=== PATIENT | male | born 1945 | race Caucasian/White ===

== ENCOUNTER 2020-02-12 14:23 | Inpatient (IN) | payer MEDICAID ==
[~2020-02-12] VITALS: Ht 182.9 cm; Wt 54.9 kg
--- NOTE | 2020-02-12 14:25 | NUR ---
AAOX3, BIBRA 889 FROM HOME C/O DIFFUSE ABDOMINAL PAIN, DIARRHEA AND VOMITING X 2 DAYS. RR IS EVEN AND UNLABORED WITH NAD NOTED. SKIN IS WARM AND DRY. AWAITING MD FOR EVAL.
--- NOTE | 2020-02-12 14:48 | NUR ---
IV INSERTED LEFT FORARM 18G
[2020-02-12 14:51] LABS: BASOPHILS % (AUTO) 0.1 % (0.0-2.0); HEMATOCRIT 52 % (39-51); LYMPHOCYTES # (AUTO) 0.9 /CMM (0.8-4.8); LYMPHOCYTES % (AUTO) 3.3 % (20.0-44.0); MEAN CORPUSCULAR HGB CONC 33 g/dl (31.0-36.0); MEAN CORPUSCULAR VOLUME 87 fL (80-96); MONOCYTES # (AUTO) 1.6 /CMM (0.1-1.30); MONOCYTES % (AUTO) 5.8 % (2.0-12.0); NEUTROPHILS # (AUTO) 25.3 /CMM (1.8-8.9); NEUTROPHILS % (AUTO) 90.8 % (43.0-81.0); PLATELET COUNT (AUTO) 245 /CMM (150-450); RED BLOOD CELL COUNT(AUTO) 5.97 MIL/uL (4.5-6.0); WHITE BLOOD COUNT (AUTO) 27.8 K/uL (4.3-11.0)
[2020-02-12] MEDS ORDERED: IV NS 0.9% 1,000 ML BAG IV ONE ×2 (15:00→17:30)
[2020-02-12 15:08] LABS: CALCIUM, SERUM 8.9 mg/dL (8.5-10.1); CARBON DIOXIDE 20 mmol/L (21-32); CHLORIDE 101 mmol/L (98-107); GLUCOSE 184 mg/dL (74-106); POTASSIUM 4.5 mmol/L (3.5-5.1); SODIUM SERUM 137 mmol/L (136-145); UREA NITROGEN, BLOOD 42 mg/dL (7-18)
[2020-02-12 15:13] LABS: ALANINE AMINOTRANSFERASE 10 U/L (12-78); ALBUMIN 3.5 g/dL (3.4-5.0); ALKALINE PHOSPHATASE 55 U/L (46-116); ASPARTATE AMINOTRANSFERASE 16 U/L (15-37); LIPASE 44 U/L (73-393); TOTAL PROTEIN, SERUM 6.9 g/dL (6.4-8.2)
[2020-02-12 15:24] LABS: BILIRUBIN,DIRECT 0.4 mg/dL (0.0-0.2)
--- NOTE | 2020-02-12 15:29 | NUR ---
patient came back from ct
[2020-02-12] MEDS ORDERED: LEVOFLOXACIN 750 MG /D5W 150ML 150 ML IV ONE ×2 (16:00→16:08)
[2020-02-12] MEDS ORDERED: METRONIDAZOLE 500MG/ NS 100ML 100 ML IV ONE ×2 (16:00→16:08)
[2020-02-12 17:01] LABS: APPEARANCE,URINE Slightly Cloudy (CLEAR); BILIRUBIN,URINE MODERATE (NEGATIVE); BLOOD, URINE Trace-lysed Ery/uL (NEGATIVE); COLOR,URINE Dark (YELLOW); KETONES,URINE 15 (NEGATIVE); LEUKOCYTE ESTERASE ,URINE Negative (NEGATIVE); NITRITE, URINE Negative (NEGATIVE); PH,URINE 5.5 (5.0-8.0); PROTEIN,URINE 30 mg/dl (NEGATIVE); UGLUCOSE Negative (NEGATIVE); UROBILINOGEN,URINE 0.2 EU/dL (0.2)
--- NOTE | 2020-02-12 17:38 | NUR ---
COVID TEST COMPLETED , SENT TO LAB
[2020-02-12 18:00] LABS: BACTERIA,URINE Few /HPF (None Seen); RBC,URINE 0-2 /HPF (0-2); SQUAMOUS EPITHELIAL CELL,UR Few /HPF (None Seen); WBC,URINE 0-2 /HPF (0-3)
[2020-02-12 18:26] LABS: MAGNESIUM 2.1 mg/dL (1.8-2.4)
[2020-02-12 18:52] LABS: C-REACTIVE PROTEIN 10.3 mg/dL (0.0-0.9)
[2020-02-12 18:53] LABS: THYROID STIMULATING HORMONE 1.763 uIU/mL (0.358-3.74)
[2020-02-12] MEDS ORDERED: HYDROCODONE/APAP 5/325MG TABLET PO PRN (19:00)
[2020-02-12] MEDS ORDERED: MAG HYDROX/AL HYDROX/SIMETH 30 ML UDC PO PRN (19:00)
[2020-02-12] MEDS ORDERED: ONDANSETRON HCL/PF 4 MG/2 ML VIAL IVP PRN (19:00)
[2020-02-12] MEDS ORDERED: MAGNESIUM HYDROXIDE 30 ML UDC PO PRN (19:00)
[2020-02-12] MEDS ORDERED: ACETAMINOPHEN 325 MG TABLET PO PRN (19:00)
[2020-02-12] MEDS ORDERED: Z GUARD REMEDY 2 OZ OINT TP PRN (19:00)
--- NOTE | 2020-02-12 19:26 | NUR ---
PT HAS NO MEDICAL COMPLAINTS AT THIS TIME. VSS. NO ACUTE DISTRESS NOTED. PT CONNECTED TO THE PITCH WORKER AND POX.
--- NOTE | 2020-02-12 19:47 | NUR ---
CALLED FOR COVID
--- NOTE | 2020-02-12 20:02 | NUR ---
(PT'S DAUGHTER) LENA
--- NOTE | 2020-02-12 20:03 | NUR ---
MOSOTHO AND GUINEAN SPEAKING
--- NOTE | 2020-02-12 20:07 | NUR ---
COVID SWAB COLLECTED AND SENT TO LAB
--- NOTE | 2020-02-12 21:56 | NUR ---
COVID NEGATIVE (-) PER LAB 323-2
--- NOTE | 2020-02-12 21:59 | NUR ---
WILL CALL BACK FOR REPORT
--- NOTE | 2020-02-12 22:10 | NUR ---
REPORT GIVEN TO KASI REYES FOR LAINA
[2020-02-12 22:40] VITALS: BP 135/86
--- NOTE | 2020-02-12 22:58 | NUR ---
MS RN ADMITTING NOTES ADMITTED PATIENT, FROM ER TRANSPORTED VIA GURNEY, NO SIGNS OF ACUTE CARDIAC OR RESPIRATORY DISTRESS NOTED. ALERT ORIENTED X4, PERUVIAN / GABONESE SPEAKING. ORIENTED TO ROOM AND THE USE OF CALL LIGHT. SAFETY MEASURES IN PLACE, ASPIRATION PRECAUTION EMPHASIZED. DENIES ANY PAIN WITH SLIGHT ABDOMINAL DISCOMFORT AT THIS TIME, REPOSITIONED FOR COMFORT. SKIN INTACT NOTED DURING ASSESSMENT.PERIPHERAL IV ACCESS ON HER LEFT AC G#18 INTACT AND PATENT. ALL NEEDS ANTICIPATED. ADMISSION PROCESS INITIATED. WILL CONTINUE TO MONITOR ACCORDINGLY.
[2020-02-12 23:15] VITALS: BP 135/86
[2020-02-12] MEDS: IV NS 0.9% 1,000 ML IV PRN (23:16)
[2020-02-13] MEDS ORDERED: METRONIDAZOLE 500MG/ NS 100ML 100 ML IV ONE ×2 (00:45→05:35)
[2020-02-13] MEDS: METRONIDAZOLE 500MG/ NS 100ML 500 MG in PREMIX 1 EA IV SCH ×5 (00:51→23:09)
--- NOTE | 2020-02-13 06:35 | NUR ---
MS RN NOTES ALL NEEDS ATTENDED AND MET, PATIENT HAD A WATERY STOOLS X3, SINCE 0030. INSTRUCTED TO COLLECT SPECIMEN, PATIENT FORGOT AND FLUSHED THE FIRST 2 BM. SAFETY MEASURES IN PLACE, ASPIRATION PRECAUTION EMPHASIZED. CALL LIGHT WITH IN EASY REACH. WILL ENDORSE TO AM NURSE FOR CONTINUITY OF CARE.
[2020-02-13 06:47] LABS: BASOPHILS % (AUTO) 0.1 % (0.0-2.0); HEMATOCRIT 48 % (39-51); HEMOGLOBIN 15.7 g/dL (13.5-17.5); LYMPHOCYTES # (AUTO) 1.1 /CMM (0.8-4.8); LYMPHOCYTES % (AUTO) 5.4 % (20.0-44.0); MEAN CORPUSCULAR HGB CONC 32 g/dl (31.0-36.0); MEAN CORPUSCULAR VOLUME 87 fL (80-96); MONOCYTES # (AUTO) 1.4 /CMM (0.1-1.30); MONOCYTES % (AUTO) 6.5 % (2.0-12.0); NEUTROPHILS # (AUTO) 18.9 /CMM (1.8-8.9); PLATELET COUNT (AUTO) 215 /CMM (150-450); RED BLOOD CELL COUNT(AUTO) 5.55 MIL/uL (4.5-6.0); WHITE BLOOD COUNT (AUTO) 21.4 K/uL (4.3-11.0)
[2020-02-13 07:05] LABS: CALCIUM, SERUM 8.4 mg/dL (8.5-10.1); CARBON DIOXIDE 25 mmol/L (21-32); CHLORIDE 103 mmol/L (98-107); CREATININE 1.4 mg/dL (0.6-1.3); GLUCOSE 136 mg/dL (74-106); MAGNESIUM 2.1 mg/dL (1.8-2.4); PHOSPHORUS 3.2 mg/dL (2.5-4.9); POTASSIUM 4.6 mmol/L (3.5-5.1); SODIUM SERUM 138 mmol/L (136-145); UREA NITROGEN, BLOOD 33 mg/dL (7-18)
[2020-02-13 07:30] LABS: CHOLESTEROL 165 mg/dL (<200); HDL CHOLESTEROL 40 mg/dL (40-60); LDL 107 mg/dL (0-99); TRIGLYCERIDES 94 mg/dL (30-150)
[2020-02-13 08:00] VITALS: BP 127/81
--- NOTE | 2020-02-13 08:00 | NUR ---
Patient in stable condition . Patient has no appetite and general weakens. denies abdominal pain
--- NOTE | 2020-02-13 10:20 | NUR ---
Patient seen by Aguilar GUT SNATCHER and plan of care discussed with the patient . Patient verbalized understanding.
[2020-02-13] MEDS: IV NS 0.9% 1,000 ML IV PRN (15:41)
[2020-02-13 16:00] VITALS: BP 113/73
[2020-02-13] MEDS: LEVOFLOXACIN 250 MG /D5W 50 ML 250 MG in PREMIX 1 EA IV SCH (16:16)
[2020-02-13] MEDS: ENSURE CLEAR 237 ML LIQUID (MIX BERRY) PO SCH (17:19)
--- NOTE | 2020-02-13 18:46 | NUR ---
Patient resting in bed comfortably . NO distress noted, no abd pain at this time. Patient continue to have diarrhea , C-Diff is pending. IV infusing Levaquin as directed. Will endorse to next shift for LAINA
--- NOTE | 2020-02-13 19:40 | NUR ---
MS RN OPENING NOTES RECEIVED PATIENT FROM MORNING SHIFT, ALERT AND ORIENTED X 3. VERBALLY RESPONSIVE CITIZEN OF [place] SPEAKING AND ABLE TO FOLLOW DIRECTIONS. BREATHING REGULAR AND UNLABORED ON ROOM AIR. LEFT AC G18 IV LINE INTACT AND PATENT, INFUSING WELL WITH NO BLEEDING OR S/S OF INFILTRATION NOTED. DENIES SUICIDAL IDEATION OR PAIN/DISCOMFORT AT THIS TIME. BED LOW AND LOCKED ON SEMI FOWLERS POSITION. CALL LIGHT IN REACH. WILL CONTINUE TO MONITOR.
[2020-02-13 20:00] VITALS: BP 127/77
[2020-02-13 20:08] VITALS: BP 127/77
[2020-02-14] MEDS: METRONIDAZOLE 500MG/ NS 100ML 500 MG in PREMIX 1 EA IV SCH ×4 (05:29→23:17)
[2020-02-14 06:18] LABS: BASOPHILS % (AUTO) 0.1 % (0.0-2.0); HEMATOCRIT 47 % (39-51); HEMOGLOBIN 15.2 g/dL (13.5-17.5); LYMPHOCYTES % (AUTO) 5.2 % (20.0-44.0); MEAN CORPUSCULAR HGB CONC 32 g/dl (31.0-36.0); MEAN CORPUSCULAR VOLUME 88 fL (80-96); MONOCYTES # (AUTO) 1.5 /CMM (0.1-1.30); MONOCYTES % (AUTO) 8.1 % (2.0-12.0); NEUTROPHILS # (AUTO) 16.1 /CMM (1.8-8.9); NEUTROPHILS % (AUTO) 86.6 % (43.0-81.0); PLATELET COUNT (AUTO) 202 /CMM (150-450); RED BLOOD CELL COUNT(AUTO) 5.36 MIL/uL (4.5-6.0); WHITE BLOOD COUNT (AUTO) 18.6 K/uL (4.3-11.0)
--- NOTE | 2020-02-14 06:25 | NUR ---
MS RN CLOSING NOTES PATIENT IN BED, ALERT AND ORIENTED X 3. AFEBRILE WITH NO S/S OF DISTRESS OBSERVED. LEFT AC G18 IV LINE PATENT AND INFUSING WELL. NO COMPLAINTS OF PAIN/DISCOMFORT REPORTED AT THIS TIME. BED LOW AND LOCKED ON SEMI FOWLERS POSITION. CALL LIGHT IN REACH. WILL ENDORSE TO MORNING SHIFT FOR LAINA.
[2020-02-14 06:46] LABS: CALCIUM, SERUM 7.8 mg/dL (8.5-10.1)
[2020-02-14] MEDS: IV NS 0.9% 1,000 ML IV PRN (07:03)
[2020-02-14 08:00] VITALS: BP 145/85
--- NOTE | 2020-02-14 08:30 | NUR ---
Patient noted with infiltrated IV line. IV removed and ice pack applied. Will insert another IV line
[2020-02-14] MEDS: ENSURE CLEAR 237 ML LIQUID (MIX BERRY) PO SCH ×3 (08:40→17:04)
--- NOTE | 2020-02-14 09:46 | NUR ---
A new IV line inserted to the right forearm g 22, flushing well . Patient continue on IV fluids as ordered
--- NOTE | 2020-02-14 12:30 | NUR ---
Patient's daughter picked up pt's wallet . Documented on valuable form.
--- NOTE | 2020-02-14 15:46 | NUR ---
Received call bernabe Brown ; patient C-diff positive. Patient was on contact isolation since sample was send. Miladys SAMUEL notified
--- NOTE | 2020-02-14 15:48 | NUR ---
A new order from Sarah Lee : Vancomycin 125 mg PO Q6 hr
[2020-02-14 16:00] VITALS: BP 132/80
[2020-02-14] MEDS: LEVOFLOXACIN 250 MG /D5W 50 ML 250 MG in PREMIX 1 EA IV SCH (16:19)
[2020-02-14] MEDS: VANCOMYCIN HCL 125 MG/2.5 ML ORAL.SUSP PO SCH ×2 (17:44→23:17)
--- NOTE | 2020-02-14 18:44 | NUR ---
Patient resting in bed . All needs attended. pt states he feel better today and have more energy. 4 episodes diarrhea today. IV line to the right forearm 22 g , IV fluid infusing as ordered. Safety precautions in place, call light within reach. Will endorse to next shift for LAINA
--- NOTE | 2020-02-14 19:35 | NUR ---
MS RN OPENING NOTES RECEIVED PATIENT FROM MORNING SHIFT, ALERT AND ORIENTED X 3. VERBALLY RESPONSIVE ZAMBIAN SPEAKING AND ABLE TO FOLLOW DIRECTIONS. BREATHING REGULAR AND UNLABORED ON ROOM AIR. LEFT AC G18 IV LINE INTACT AND PATENT, INFUSING WELL WITH NO BLEEDING OR S/S OF INFILTRATION NOTED. DENIES SUICIDAL IDEATION OR PAIN/DISCOMFORT AT THIS TIME. ON CONTACT ISOLATION FOR C.DIFFICILE. PROPER HAND WASHING AND ISOLATION PRECAUTION OBSERVED. BED LOW AND LOCKED ON SEMI FOWLERS POSITION. CALL LIGHT IN REACH. WILL CONTINUE TO MONITOR.
[2020-02-14 20:00] VITALS: BP 131/86
[2020-02-15] MEDS: VANCOMYCIN HCL 125 MG/2.5 ML ORAL.SUSP PO SCH ×3 (05:37→17:28)
[2020-02-15] MEDS: METRONIDAZOLE 500MG/ NS 100ML 500 MG in PREMIX 1 EA IV SCH (05:37)
[2020-02-15 06:29] LABS: BASOPHILS % (AUTO) 0.1 % (0.0-2.0); HEMATOCRIT 46 % (39-51); HEMOGLOBIN 15.2 g/dL (13.5-17.5); LYMPHOCYTES # (AUTO) 1.2 /CMM (0.8-4.8); MEAN CORPUSCULAR HGB CONC 33 g/dl (31.0-36.0); MEAN CORPUSCULAR VOLUME 87 fL (80-96); MONOCYTES # (AUTO) 1.3 /CMM (0.1-1.30); MONOCYTES % (AUTO) 8.2 % (2.0-12.0); NEUTROPHILS % (AUTO) 83.7 % (43.0-81.0); PLATELET COUNT (AUTO) 210 /CMM (150-450); RED BLOOD CELL COUNT(AUTO) 5.32 MIL/uL (4.5-6.0); WHITE BLOOD COUNT (AUTO) 15.5 K/uL (4.3-11.0)
--- NOTE | 2020-02-15 06:40 | NUR ---
MS RN CLOSING NOTES PATIENT IN BED, ALERT AND ORIENTED X 3. AFEBRILE WITH NO S/S OF DISTRESS OBSERVED. RIGHT FOREARM G22 IV LINE PATENT AND INFUSING WELL. NO COMPLAINTS OF PAIN/DISCOMFORT REPORTED AT THIS TIME. MAINTAINED ON CONTACT ISOLATION FOR C.DIFFICILE. BED LOW AND LOCKED ON SEMI FOWLERS POSITION. CALL LIGHT IN REACH. WILL ENDORSE TO MORNING SHIFT FOR LAINA.
[2020-02-15 06:50] LABS: CALCIUM, SERUM 7.9 mg/dL (8.5-10.1); CREATININE 1.2 mg/dL (0.6-1.3); POTASSIUM 4.1 mmol/L (3.5-5.1)
[2020-02-15 07:06] LABS: PTH, INTACT 23 pg/mL (15-65)
--- NOTE | 2020-02-15 07:39 | NUR ---
MS RN OPENING NOTES BEDSIDE ENDORSEMENT DONE. PATIENT IS IN BED, AWAKE AND VERBALLY RESPONSIVE, A/O X3. SPANISH-SPEAKING BUT ABLE TO FOLLOW SIMPLE COMMANDS. BREATHING EVEN AND UNLABORED, TOLERATING ROOM AIR. LAC G18 IV INTACT AND PATENT. ON CONTACT ISOLATION FOR C. DIFF: PROPER HAND WASHING AND PRECAUTIONS OBSERVED. CALL LIGHT W/IN REACH AND REMINDED TO ASK FOR STAFF ASSISTANCE FOR ADLS. WILL CONTINUE TO MONITOR.
[2020-02-15 08:00] VITALS: BP 131/80
[2020-02-15] MEDS: ENSURE CLEAR 237 ML LIQUID (MIX BERRY) PO SCH ×3 (09:40→17:00)
[2020-02-15 16:00] VITALS: BP 104/79
--- NOTE | 2020-02-15 18:40 | NUR ---
MS RN CLOSING NOTES PATIENT IN BED ASLEEP AT THIS TIME, EASILY AWAKENS. HOB ELEVATED. PT IS A/O X 3. TANZANIAN SPEAKING. ON ROOM AIR, TOLERATING WELL WITH NO S/S OF DISTRESS OBSERVED DURING THE DAY. IV ACCESS ON RFA G#22 INTACT AND PATENT, IVF OF NS @ 75ML/HR INFUSING WELL, NO S/S OF INFILTRATIONS AT SITE NOTED. CONTACT ISOLATION FOR C.DIFFICILE MAINTAINED. ALL NEEDS AND CARE ATTENDED WELL. SAFETY MEASURES IN PLACE: BED LOW AND LOCKED W/ SR UP X2. CALL LIGHT IN REACH. WILL ENDORSE TO NIGHT NURSE FOR LAINA.
[2020-02-15] MEDS: IV NS 0.9% 1,000 ML IV PRN (19:02)
--- NOTE | 2020-02-15 19:30 | NUR ---
MS RN OPENING NOTES PATIENT AWAKE IN BED. A/OX3; PRIMARY LANGUAGE KHMER HOWEVER IS ABLE TO UNDERSTAND A LITTLE HUNGARIAN. ON RA; NO S/S OF ACUTE RESPIRATORY DISTRESS; BREATHING IS EVEN AND UNLABORED. NO S/S OF PAIN NOTED. IV PRESENT ON RIGHT FA, SIZE 22, INTACT & PATENT WITH NS RUNNING AT 75 ML/HR. CONTACT PRECAUTIONS IN PLACE FOR C-DIFF. SAFETY MEASURES IN PLACE AND PATIENT'S NEEDS MET. BED LOCKED, HOB ELEVATED, SIDE RAILS X2, CALL LIGHT WITHIN REACH. WILL CONTINUE TO MONITOR.
[2020-02-15 19:59] VITALS: BP 136/81
[2020-02-15 20:00] VITALS: BP 136/81
[2020-02-15 20:22] VITALS: BP 136/81
[2020-02-16] MEDS: VANCOMYCIN HCL 125 MG/2.5 ML ORAL.SUSP PO SCH ×5 (00:20→23:46)
--- NOTE | 2020-02-16 06:35 | NUR ---
MS RN CLOSING NOTES PATIENT SLEEPING, EASY TO AWAKEN. A/OX3. ON RA; NO S/S OF ACUTE RESPIRATORY DISTRESS; BREATHING IS EVEN AND UNLABORED. NO S/S OF PAIN NOTED. IV PRESENT ON RIGHT FA, SIZE 22, INTACT & PATENT WITH NS RUNNING AT 75 ML/HR. CONTACT PRECAUTIONS IN PLACE FOR C-DIFF. SAFETY MEASURES IN PLACE AND PATIENT'S NEEDS MET. BED LOCKED, HOB ELEVATED, SIDE RAILS X2, CALL LIGHT WITHIN REACH. WILL ENDORSE TO DAY SHIFT RN PLAN OF CARE.
--- NOTE | 2020-02-16 07:34 | NUR ---
MS RN OPENING NOTES RECEIVED PATIENT IN BED AWAKE, A/O X 3. THAI SPEAKING, DENIES PAIN OR ANY DISCOMFORTS AT THIS TIME. ON ROOM AIR, BREATHING EVEN AND UNLABORED. CONTACT PRECAUTIONS FOR C-DIFF MAINTAINED. IV ACCESS ON LEFT WRIST 22G INTACT AND PATENT WITH IVF OF NS @ 75ML/HR INFUSING, NO S/S OF INFILTRATIONS NOTED AT SITE.S AFETY PRECAUTIONS IN PLACE: BED IN LOWEST POSITION, LOCKED WITH SR UP X2. CALL LIGHT WITHIN REACH. WILL CONTINUE TO MONITOR.
[2020-02-16 08:00] VITALS: BP 129/75
[2020-02-16] MEDS: ENSURE CLEAR 237 ML LIQUID (MIX BERRY) PO SCH ×3 (08:00→16:35)
[2020-02-16 12:21] LABS: BASOPHILS % (AUTO) 0.1 % (0.0-2.0); HEMATOCRIT 47 % (39-51); HEMOGLOBIN 15.1 g/dL (13.5-17.5); LYMPHOCYTES # (AUTO) 1.5 /CMM (0.8-4.8); LYMPHOCYTES % (AUTO) 9.6 % (20.0-44.0); MEAN CORPUSCULAR HGB CONC 32 g/dl (31.0-36.0); MEAN CORPUSCULAR VOLUME 88 fL (80-96); MONOCYTES # (AUTO) 1.1 /CMM (0.1-1.30); NEUTROPHILS # (AUTO) 13.1 /CMM (1.8-8.9); NEUTROPHILS % (AUTO) 83.3 % (43.0-81.0); PLATELET COUNT (AUTO) 239 /CMM (150-450); RED BLOOD CELL COUNT(AUTO) 5.34 MIL/uL (4.5-6.0); WHITE BLOOD COUNT (AUTO) 15.7 K/uL (4.3-11.0)
[2020-02-16 12:27] LABS: CALCIUM, SERUM 7.6 mg/dL (8.5-10.1); CREATININE 1.1 mg/dL (0.6-1.3); POTASSIUM 3.5 mmol/L (3.5-5.1)
--- NOTE | 2020-02-16 15:34 | NUR ---
RN NOTES PATIENT W/ VTE SCORE OF 3. INFORMED PERI PRETTY NP, AND SAID THAT HE WILL PUT AN ORDER FOR CHEMICAL PROPHYLAXIS.
[2020-02-16 16:00] VITALS: BP 124/76
--- NOTE | 2020-02-16 18:42 | NUR ---
MS RN CLOSING NOTES PATIENT IN AWAKE AND VERBALLY RESPONSIVE, A/O X3. BREATHING EVEN AND UNLABORED, TOLERATING ROOM AIR, WITH NO S/S OF DISTRESS OBSERVED. IV ACCESS ON LEFT WRIST G#22 INTACT AND PATENT, NO S/SX OF INFILTRATION. CONTACT ISOLATION FOR C.DIFFICILE MAINTAINED. ALL NEEDS AND CARE ATTENDED DURING THE SHIFT. SAFETY MEASURES IN PLACE: BED ON LOWEST AND LOCKED POSITION, SR UP X2, CALL LIGHT W/IN REACH. WILL ENDORSE TO MARKETING CONTENT MANAGER NURSE FOR LAINA.
--- NOTE | 2020-02-16 19:00 | NUR ---
stock turner: received report from nyla scott. pt a/o x3, croatian speaking, able to make his needs known. seen by gi today, aware pt still having loose bm 10x. order lomotil prn. iv access patent and flushing well, on hl. pt eating croatian food. on ra respirations even and unlabored. + cdiff, isolation precautions initiated, ppe utilized. safety precautions for fall initiated, call light in reach, will continue monitoring pt.
--- NOTE | 2020-02-16 19:54 | NUR ---
rn notes: lomotil medication showing on [facility]. other [facility] in [facility]il not stock. day rn nyla notified pharmacy at 1830 that medication showing in the [facility]. no available meds in pt's cassette. asked different unit however its not available in their [facility]
[2020-02-16 19:57] VITALS: BP 134/76
[2020-02-16 20:05] VITALS: BP 134/76
--- NOTE | 2020-02-16 20:30 | NUR ---
rn notes: received call from [phone] dany (chata) provided update regarding pt. stated she can be of help regarding translation.
--- NOTE | 2020-02-16 20:35 | NUR ---
rn notes: went to er to get lomotil. broadcast journalist andrew override the medication.
[2020-02-16] MEDS ORDERED: DIPHENOXYLATE HCL/ATROP SULF 1 UDTAB TABLET ONE (20:42)
[2020-02-16] MEDS: DIPHENOXYLATE HCL/ATROP SULF 1 UDTAB TABLET PO PRN (20:47)
--- NOTE | 2020-02-16 20:47 | NUR ---
prn lomotil: pt having loose bm, prn lomotil administered per md ordered.
[2020-02-16] MEDS ORDERED: METRONIDAZOLE 500MG/ NS 100ML 100 ML IV ONE (23:31)
[2020-02-16] MEDS: METRONIDAZOLE 500MG/ NS 100ML 500 MG in PREMIX 1 EA IV SCH (23:40)
--- NOTE | 2020-02-17 | NUR ---
rn notes: ID/EQUIPMENT CLEANER AND TESTER Nissa increase dose of vancomycin to 5ml for treatment of cdiff. med room's fridge only has 3 syringes filled with 2.5ml of vancomycin po grape flavor for pt. since 5ml are administered, there is only one 2.5 ml filled vanco po syringe left in the fridge, not enough for 0600am dose vanco. internal security manager aware. will wait for pharmacy to open in am in order to administer complete dose of vanco for 0600am.
--- NOTE | 2020-02-17 00:05 | NUR ---
transfer of care notes: pt assisted to the bathroom. had 2 loose bm from 7pm till now. pt restarted on iv metronidazole per id dr vann. vanco po increase to 5ml q6hrs for cdiff. safety precautions for fall remains engaged, call light in reach. endorse to sonia hassan for continuity of care.
--- NOTE | 2020-02-17 00:10 | NUR ---
MS/RN NOTES: REPORT GIVEN BY RN DONN FOR CONTINUITY OF CARE. PT. BACK IN BED, AFTER USING THE RESTROOM. IV CONNECTED TO IV ANTIBIOTIC. NO S/S OF DISTRESS. NO SOB NOTED. NO C/O PAIN AT THIS TIMRE/ SAFETY MEASURES IN PLACE. BED IN LOW, LOCKED POSITION WITH SR UP X2. CALL LIGHT WITHIN REACH. WILL CONTINUE TO MONITOR ACCORDINGLY.
--- NOTE | 2020-02-17 05:33 | NUR ---
MS/RN NOTES: UNABLE TO GIVE VANCOCIN HCL 250MG 5ML SCHEDULED AT 0600. UNIT'S STOCK IS 2.5ML 125MG. WILL F/U WITH PHARMACY AND ENDORSE TO DAY SHIFT RN TO BRING IN THE CORRECT DOSE IN THE MORNING. CHARGE NURSE AWARE.
--- NOTE | 2020-02-17 06:41 | NUR ---
MS/RN CLOSING NOTES: PT REMAINS COMFORTABLE IN BED, NO S/S OF DISTRESS. ON ROOM AIR. NO SOB NOTED. NO C/O PAIN AT THIS TIME. SAFETY MEASURES IN PLACE. IV ON THE LEFT WRIST #22G INFUSING NS AT 75MLS/HR. ALL NURSING NEEDS MET AND RENDERED. VANCOCIN 250MG DUE AT 0600, WILL ENDORSED TO DAY SHIFT. PHARMACY INFORMED TO BRING IN THE CORRECT DOSE. SAFETY MEASURES KEPT IN PLACE. BED IN LOW, LOCKED POSITION WITH SR UP X2. CALL LIGHT WITHIN REACH. WILL ENDORSE TO DAY SHIFT FOR LAINA.
[2020-02-17 06:42] LABS: BASOPHILS % (AUTO) 0.2 % (0.0-2.0); EOSINOPHILS % (AUTO) 0.2 % (0.0-6.0); HEMATOCRIT 44 % (39-51); HEMOGLOBIN 14.4 g/dL (13.5-17.5); LYMPHOCYTES # (AUTO) 2.3 /CMM (0.8-4.8); LYMPHOCYTES % (AUTO) 13.6 % (20.0-44.0); MEAN CORPUSCULAR HGB CONC 33 g/dl (31.0-36.0); MEAN CORPUSCULAR VOLUME 87 fL (80-96); MONOCYTES # (AUTO) 1.3 /CMM (0.1-1.30); MONOCYTES % (AUTO) 7.6 % (2.0-12.0); NEUTROPHILS # (AUTO) 13.2 /CMM (1.8-8.9); NEUTROPHILS % (AUTO) 78.4 % (43.0-81.0); PLATELET COUNT (AUTO) 211 /CMM (150-450); RED BLOOD CELL COUNT(AUTO) 5.02 MIL/uL (4.5-6.0); WHITE BLOOD COUNT (AUTO) 16.8 K/uL (4.3-11.0)
[2020-02-17 07:08] LABS: CALCIUM, SERUM 7.7 mg/dL (8.5-10.1); CREATININE 0.9 mg/dL (0.6-1.3); POTASSIUM 3.4 mmol/L (3.5-5.1)
[2020-02-17] MEDS: METRONIDAZOLE 500MG/ NS 100ML 500 MG in PREMIX 1 EA IV SCH ×3 (07:45→22:18)
[2020-02-17] MEDS: ENSURE CLEAR 237 ML LIQUID (MIX BERRY) PO SCH ×3 (07:45→17:00)
[2020-02-17] MEDS: VANCOMYCIN HCL 125 MG/2.5 ML ORAL.SUSP PO SCH ×4 (07:45→23:40)
[2020-02-17 08:00] VITALS: BP 130/69
[2020-02-17] MEDS ORDERED: POTASSIUM CHLORIDE 20 MEQ POWDER PACKET PO SCH (10:30)
[2020-02-17 16:00] VITALS: BP 124/72
--- NOTE | 2020-02-17 17:39 | NUR ---
rn notes patient remains on room air, no sob noted, a/o x3 with an azerbaijani speaking nurse by side. BRP with good balance. 1 BM in the am and nothing else after that. L wrist NS @ 75 ml per hour present. plan is to continue tjo and aletha, pt eval in the AM. Bed at the lowest setting, call light within reach, side rails up x2.
--- NOTE | 2020-02-17 19:35 | NUR ---
RN OPENING NOTE S PATIENT RECEIVED RESTING IN BED A/O X 3. STABLE ON RA WITH BREATHING EVEN AND UNLABORED, NO SOB NOTED. NO SIGNS OF ACUTE DISTRESS. NO COMPLAINTS OF PAIN OR DISCOMFORT. IV LOCATED ON L WRIST #22 RUNNING NS @ 75ML/HR. SAFETY PRECAUTIONS IN PLACE WITH BED IN LOWEST POSITION, CALL LIGHT WITHIN REACH, BREAKS ON, SIDE RAILS UP. WILL CONTINUE TO MONITOR THROUGHOUT THE NIGHT.
[2020-02-17 20:00] VITALS: BP 133/70
[2020-02-17] MEDS ORDERED: DIPHENOXYLATE HCL/ATROP SULF 1 UDTAB TABLET ONE (22:16)
[2020-02-17] MEDS: DIPHENOXYLATE HCL/ATROP SULF 1 UDTAB TABLET PO PRN (22:18)
--- NOTE | 2020-02-17 22:30 | NUR ---
RN NOTES LOMOTIL PRN ADMINISTERED. PATIENT COMPLAINING OF LOSE STOOL. WILL CONTINUE TO MONITOR.
--- NOTE | 2020-02-17 22:40 | NUR ---
RN NOTES LOMITIL MEDICATION IN [facility], OTHER [facility]MN[facility] IS OUT OF STOCK. RECEIVED MEDICATION FROM ER.
[2020-02-18] MEDS: VANCOMYCIN HCL 125 MG/2.5 ML ORAL.SUSP PO SCH ×3 (05:09→17:06)
[2020-02-18] MEDS: METRONIDAZOLE 500MG/ NS 100ML 500 MG in PREMIX 1 EA IV SCH ×3 (06:39→23:15)
--- NOTE | 2020-02-18 06:53 | NUR ---
RN CLOSING NOTES PATIENT RESTING IN BED A/O X 3. STABLE ON RA WITH BREATHING EVEN AND UNLABORED, NO SOB NOTED. NO SIGNS OF ACUTE DISTRESS. NO COMPLAINTS OF PAIN OR DISCOMFORT. IV LOCATED ON L WRIST #22. PATIENT HAD 1 BM THROUGHOUT THE NIGHT, LOOSE AND LIQUID. SAFETY PRECAUTIONS IN PLACE WITH BED IN LOWEST POSITION, CALL LIGHT WITHIN REACH, BREAKS ON, SIDE RAILS UP. ALL NEEDS ATTENDED TO. WILL ENDORSE TO ONCOMING SHIFT ABOUT LAINA.
[2020-02-18 07:10] LABS: *SPE A/G RATIO 1.2 (0.7-1.7); *SPE ALBUMIN 2.6 g/dL (2.9-4.4); *SPE ALPHA-1-GLOBULIN 0.2 g/dL (0.0-0.4); *SPE ALPHA-2-GLOBULIN 0.8 g/dL (0.4-1.0); *SPE BETA GLOBULIN 0.5 g/dL (0.7-1.3); *SPE GLOBULIN, TOTAL 2.2 g/dL (2.2-3.9); *SPE M-SPIKE Not Observed g/dL (Not Observed); *SPEGAMMA GLOBULIN 0.6 g/dL (0.4-1.8)
[2020-02-18 07:12] LABS: BASOPHILS # (AUTO) 0.1 /CMM (0.0-0.2); BASOPHILS % (AUTO) 0.4 % (0.0-2.0); EOSINOPHILS % (AUTO) 0.1 % (0.0-6.0); HEMATOCRIT 42 % (39-51); HEMOGLOBIN 13.7 g/dL (13.5-17.5); LYMPHOCYTES # (AUTO) 1.8 /CMM (0.8-4.8); LYMPHOCYTES % (AUTO) 11.7 % (20.0-44.0); MEAN CORPUSCULAR HGB CONC 33 g/dl (31.0-36.0); MEAN CORPUSCULAR VOLUME 87 fL (80-96); MONOCYTES # (AUTO) 1.2 /CMM (0.1-1.30); MONOCYTES % (AUTO) 7.7 % (2.0-12.0); NEUTROPHILS # (AUTO) 12.2 /CMM (1.8-8.9); NEUTROPHILS % (AUTO) 80.1 % (43.0-81.0); PLATELET COUNT (AUTO) 227 /CMM (150-450); RED BLOOD CELL COUNT(AUTO) 4.79 MIL/uL (4.5-6.0); WHITE BLOOD COUNT (AUTO) 15.2 K/uL (4.3-11.0)
[2020-02-18 08:00] VITALS: BP 119/70
[2020-02-18] MEDS: ENSURE CLEAR 237 ML LIQUID (MIX BERRY) PO SCH ×3 (08:00→16:03)
--- NOTE | 2020-02-18 08:23 | NUR ---
rn notes patient only wants food from her family.
[2020-02-18 08:30] LABS: CALCIUM, SERUM 7.3 mg/dL (8.5-10.1); POTASSIUM 3.3 mmol/L (3.5-5.1)
[2020-02-18] MEDS ORDERED: POTASSIUM CHLORIDE 20 MEQ TAB.PRT.SR PO SCH (12:00)
[2020-02-18 16:00] VITALS: BP 152/78
--- NOTE | 2020-02-18 17:30 | NUR ---
rn notes patient remains on room air, no sob noted, a/o x3 at this time and shows no s/s of pain. Soft diet, L wrist 22 with 5ml TKO. Plan is to DC patient with antibiotics. Bed at the lowest setting, call light within reach, side rails up x2.
--- NOTE | 2020-02-18 19:36 | NUR ---
RN OPENING NOTES PATIENT RECEIVED RESTING IN BED A/O X 3. STABLE ON RA WITH BREATHING EVEN AND UNLABORED, NO SOB NOTED. NO SIGNS OF ACUTE DISTRESS. NO COMPLAINTS OF PAIN OR DISCOMFORT. IV LOCATED ON L WRIST #22 SL. SAFETY PRECAUTIONS IN PLACE WITH BED IN LOWEST POSITION, CALL LIGHT WITHIN REACH, BREAKS ON, SIDE RAILS UP. WILL CONTINUE TO MONITOR THROUGHOUT THE NIGHT.
[2020-02-18 20:00] VITALS: BP 124/72
[2020-02-18 23:51] VITALS: BP 124/72
[2020-02-19] MEDS: VANCOMYCIN HCL 125 MG/2.5 ML ORAL.SUSP PO SCH ×3 (00:23→12:20)
[2020-02-19] MEDS: METRONIDAZOLE 500MG/ NS 100ML 500 MG in PREMIX 1 EA IV SCH (06:23)
--- NOTE | 2020-02-19 06:44 | NUR ---
RN CLOSING NOTES PATIENT RESTING IN BED A/O X 3. STABLE ON RA WITH BREATHING EVEN AND UNLABORED, NO SOB NOTED. NO SIGNS OF ACUTE DISTRESS. NO COMPLAINTS OF PAIN OR DISCOMFORT. IV LOCATED ON L WRIST #22 SL. SAFETY PRECAUTIONS IN PLACE WITH BED IN LOWEST POSITION, CALL LIGHT WITHIN REACH, BREAKS ON, SIDE RAILS UP. ALL NEEDS ATTENDED TO. WILL ENDORSE TO ONCOMING SHIFT.
--- NOTE | 2020-02-19 07:30 | NUR ---
m/s speech pathology assistant: initial assessment received pt in bed awake, a/ox3. no c/o pain or any discomfort. pt reported had 2 loose bowel movement last night, but none since then. instructed to call for assistance. will continue to monitor.
[2020-02-19 07:50] LABS: BASOPHILS % (AUTO) 0.1 % (0.0-2.0); EOSINOPHILS % (AUTO) 0.3 % (0.0-6.0); HEMATOCRIT 41 % (39-51); HEMOGLOBIN 13.4 g/dL (13.5-17.5); LYMPHOCYTES # (AUTO) 1.5 /CMM (0.8-4.8); LYMPHOCYTES % (AUTO) 10.8 % (20.0-44.0); MEAN CORPUSCULAR HGB CONC 33 g/dl (31.0-36.0); MEAN CORPUSCULAR VOLUME 88 fL (80-96); MONOCYTES # (AUTO) 1.2 /CMM (0.1-1.30); MONOCYTES % (AUTO) 8.8 % (2.0-12.0); PLATELET COUNT (AUTO) 219 /CMM (150-450); RED BLOOD CELL COUNT(AUTO) 4.69 MIL/uL (4.5-6.0); WHITE BLOOD COUNT (AUTO) 13.8 K/uL (4.3-11.0)
[2020-02-19] MEDS: ENSURE CLEAR 237 ML LIQUID (MIX BERRY) PO SCH ×2 (07:54→11:46)
[2020-02-19 08:00] VITALS: BP 112/66
[2020-02-19 08:44] LABS: CALCIUM, SERUM 7.6 mg/dL (8.5-10.1); CREATININE 1.1 mg/dL (0.6-1.3); POTASSIUM 3.5 mmol/L (3.5-5.1)
--- NOTE | 2020-02-19 09:30 | NUR ---
m/s pillow agent: notes pt refused hospital food, pt prefers home food. no distress noted. will continue to monitor.
--- NOTE | 2020-02-19 11:00 | NUR ---
m/s xerox machine mechanic: md visit dr. wall at bedside with namibian staff translating, pt wants to go home today, doesn't want to stay one more day. pt for dietary consult and for d'c home today as requested. pt very pleased and happy. will continue to monitor. instructed to call for assistance. will continue to monitor.
--- NOTE | 2020-02-19 11:20 | NUR ---
m/s steam box tender: notes order received to [facility] pt home this afternoon. order acknowledged. daughter aware per pt. niece called and wants prescription fax to her. prescription faxed per family's request. pt still wants to eat his home food, still refusing hospital food including ensure.
--- NOTE | 2020-02-19 11:48 | NUR ---
m/s horologist: notes f/u made to mireille (dietary) and informed me that it has been address and been documented in her notes. dr. wall made aware.
--- NOTE | 2020-02-19 12:15 | NUR ---
m/s soft iron inspector: notes cn at bedside for turkish translation. discharge instructions given to pt with prescription and verbalized understanding. pt called daughter to pick him up with clothes as stated. h/l removed with tip intact.
--- NOTE | 2020-02-19 13:30 | NUR ---
m/s computer systems administrator: notes still awaiting for daughter to shredder picker pt. no distress noted. instructed to call for assistance.
--- NOTE | 2020-02-19 13:55 | NUR ---
m/s inside b2b sales: notes daughter arrived in main lobby and brought change of clothes.
--- NOTE | 2020-02-19 14:00 | NUR ---
m/s retail business manager: discharge discharge home in stable condition with all d'c papers and belongings via private car accompanied by daughter.
== END 2020-02-19 14:00 | disposition home or self-care (01) | DRG 720 ==
LOC: ER 14:30 → MED 22:03
PROVIDERS: ADMIT Nurse Practitioner Acute Care; ATTEND Nurse Practitioner Acute Care
DX: A41.9 Sepsis, unspecified organism (principal); N17.0 Acute kidney failure with tubular necrosis; E87.2 Acidosis; R65.20 Severe sepsis without septic shock; J18.9 Pneumonia, unspecified organism; A04.72 Enterocolitis due to Clostridium difficile, not specified as recurrent; N40.0 Benign prostatic hyperplasia without lower urinary tract symptoms; R73.9 Hyperglycemia, unspecified; Z98.890 Other specified postprocedural states; Z85.46 Personal history of malignant neoplasm of prostate; Z90.79 Acquired absence of other genital organ(s); I70.0 Atherosclerosis of aorta; E86.0 Dehydration; K51.318 Ulcerative (chronic) rectosigmoiditis with other complication; J44.0 Chronic obstructive pulmonary disease with (acute) lower respiratory infection; Z68.1 Body mass index [BMI] 19.9 or less, adult; R64 Cachexia; E43 Unspecified severe protein-calorie malnutrition
CPT/HCPCS: 36415; 71045-TC; 80048-TC; 80061-TC; 80076-TC; 81000-TC; 82378; 82550-TC; 83540-TC; 83605-TC; 83690-TC; 83735-TC; 83970; 84100-TC; 84155; 84165; 84443-TC; 85025-TC; 86140-TC; 87040-TC; 87081-TC; 97116-TC; 97530-TC; A4216; C9803-CS; G0378; J1956; J7030; J7050; U0003-CS

== ENCOUNTER 2020-03-15 16:16 | Inpatient (IN) | payer MEDICAID ==
[~2020-03-15] VITALS: Ht 175.3 cm; Wt 54.4 kg
[2020-03-15] MEDS ORDERED: IV NS 0.9% 1,000 ML BAG IV ONE (17:30)
[2020-03-15 17:40] LABS: BASOPHILS % (AUTO) 0.2 % (0.0-2.0); EOSINOPHILS % (AUTO) 0.4 % (0.0-6.0); HEMATOCRIT 42 % (39-51); HEMOGLOBIN 13.9 g/dL (13.5-17.5); LYMPHOCYTES # (AUTO) 1.6 /CMM (0.8-4.8); LYMPHOCYTES % (AUTO) 20.9 % (20.0-44.0); MEAN CORPUSCULAR HGB CONC 33 g/dl (31.0-36.0); MEAN CORPUSCULAR VOLUME 88 fL (80-96); MONOCYTES # (AUTO) 0.7 /CMM (0.1-1.30); MONOCYTES % (AUTO) 8.4 % (2.0-12.0); NEUTROPHILS # (AUTO) 5.5 /CMM (1.8-8.9); NEUTROPHILS % (AUTO) 70.1 % (43.0-81.0); PLATELET COUNT (AUTO) 230 /CMM (150-450); WHITE BLOOD COUNT (AUTO) 7.8 K/uL (4.3-11.0)
[2020-03-15 17:55] LABS: CARBON DIOXIDE 29 mmol/L (21-32); CHLORIDE 103 mmol/L (98-107); CREATININE 1.4 mg/dL (0.6-1.3); GLUCOSE 93 mg/dL (74-106); POTASSIUM 4.5 mmol/L (3.5-5.1); SODIUM SERUM 138 mmol/L (136-145); UREA NITROGEN, BLOOD 19 mg/dL (7-18)
--- NOTE | 2020-03-15 17:56 | NUR ---
nando daughter c/o generalized weakness, diarrhea since yesterday. family concern about c. diff. PT AAOX4, VSS. RR EVEN & UNLABORED. DENIES CP, SOB, DIZZINESS, N/V AT THIS TIME. PT SEEN & EVAL'D BY DR. DEAL. DAUGHTER @ BS TO HELP WITH TRANSLATION. WILL CONT TO MONITOR.
[2020-03-15 18:02] LABS: ALANINE AMINOTRANSFERASE 12 U/L (12-78); ALBUMIN 3.3 g/dL (3.4-5.0); ALKALINE PHOSPHATASE 51 U/L (46-116); ASPARTATE AMINOTRANSFERASE 14 U/L (15-37); BILIRUBIN,DIRECT 0.1 mg/dL (0.0-0.2); BILIRUBIN,TOTAL 0.4 mg/dL (0.2-1.0); LIPASE 341 U/L (73-393); TOTAL PROTEIN, SERUM 6.9 g/dL (6.4-8.2)
[2020-03-15] MEDS ORDERED: ACETAMINOPHEN 325 MG TABLET PO PRN (18:30)
[2020-03-15] MEDS ORDERED: ZOLPIDEM TARTRATE 5 MG TABLET PO PRN (18:30)
[2020-03-15] MEDS ORDERED: MAGNESIUM HYDROXIDE 30 ML UDC PO PRN (18:30)
[2020-03-15] MEDS ORDERED: ONDANSETRON HCL/PF 4 MG/2 ML VIAL IVP PRN (18:30)
[2020-03-15] MEDS ORDERED: Z GUARD REMEDY 2 OZ OINT TP PRN (18:30)
[2020-03-15] MEDS ORDERED: HYDROCODONE/APAP 5/325MG TABLET PO PRN (18:30)
[2020-03-15] MEDS ORDERED: MAG HYDROX/AL HYDROX/SIMETH 30 ML UDC PO PRN (18:30)
--- NOTE | 2020-03-15 20:16 | NUR ---
LAB CALLED REGARDING NEGATIVE COVID RESULT.
--- NOTE | 2020-03-15 21:13 | NUR ---
REPORT GIVEN TO KASI RODRIGUEZ FOR LAINA.
[2020-03-15 21:25] VITALS: BP 129/72
--- NOTE | 2020-03-15 21:30 | NUR ---
RN ADMITTING NOTES PATIENT RECEIVED FROM ER VIA GURNEY ACCOMPANIED BY ER STAFF. PATIENT A/O X 4, CITIZEN OF [place] SPEAKING. STABLE ON RA WITH BREATHING EVEN AND UNLABORED, NO SOB NOTED. NO SIGNS OF ACUTE DISTRESS. PATIENT ABLE TO AMBULATE STABLE. IV LOCATED ON LFA #18. SKIN ASSESSMENT DONE. VITALS TAKEN. BELONGINGS ACCOUNTED FOR. PATIENT ORIENTED TO ROOM AND STAFF. SAFETY PRECAUTIONS IN PLACE WITH BE IN LOWEST POSITION, CALL LIGHT WITHIN REACH, BREAKS ON, SIDE RAILS UP. WILL CONTINUE TO MONITOR THROUGHOUT THE NIGHT.
[2020-03-15] MEDS ORDERED: METRONIDAZOLE 500MG/ NS 100ML 100 ML IV ONE (21:35)
[2020-03-15] MEDS: METRONIDAZOLE 500MG/ NS 100ML 500 MG in PREMIX 1 EA IV SCH (21:50)
[2020-03-15] MEDS: IV D5/0.45 NACL 1,000 ML IV PRN (21:50)
--- NOTE | 2020-03-15 22:26 | NUR ---
DAUGHTER (LUCEROI) CONTACT [phone]
[2020-03-15 22:30] VITALS: BP 129/72
--- NOTE | 2020-03-16 00:41 | NUR ---
RN NOTES SCHEDULED ORAL GRAPE SOLUTION 250 MG VANCOMYCIN NOT AVAILABLE. FAXED AND REQUESTED TO [facility], BUT NOT AVAILABLE. WILL FOLLOW UP WITH PHARMACY IN THE MORNING AND TO ONCOMING NURSE.
[2020-03-16] MEDS ORDERED: METRONIDAZOLE 500MG/ NS 100ML 100 ML IV ONE (05:01)
[2020-03-16] MEDS: METRONIDAZOLE 500MG/ NS 100ML 500 MG in PREMIX 1 EA IV SCH ×3 (05:13→20:44)
[2020-03-16] MEDS: VANCOMYCIN HCL 125 MG/2.5 ML ORAL.SUSP PO SCH ×5 (06:00→18:14)
--- NOTE | 2020-03-16 06:11 | NUR ---
RN NOTES PO MIKE NOT AVAILABLE ON FLOOR OR WITH BANK SECRECY ACT OFFICER. WILL FOLLOW UP WITH PHARMACY AND ON COMING NURSE.
--- NOTE | 2020-03-16 06:41 | NUR ---
RN NOTES PHARMACY CALLED AND ADJUSTED DOSE OF VANCOMYCIN.
--- NOTE | 2020-03-16 06:52 | NUR ---
RN CLOSING NOTES PATIENT IN BED RESTING AO X 4. STABLE ON RA ITH BREATHING EVEN AND UNLABORED, NO SOB NOTED. NO SIGNS OF ACUTE DISTRESS. NO COMPLAINTS OF PAIN OR DISCOMFORT AT THE MOMENT. IV LOCATED ON LFA #18 RUNNING D51/2 NS @ 75ML/HR. SAFETY PRECAUTIONS IN PLACE WITH BED IN LOWEST POSITION, CALL LIGHT WITHIN REACH, BREAKS ON, SIDE RAILS UP. ALL NEEDS ATTENDED TO THROUGHOUT THEN NIGHT. WILL ENDORSE TO ONCOMING SHIFT ABOUT LAINA.
--- NOTE | 2020-03-16 07:30 | NUR ---
MS RN NOTES PATIENT RECEIVED IN BED RESTING COMFORTABLY, AWAKE, ALERT AND ORIENTED X 4, [place]CI[place] SPEAKING. ON ROOM AIR WITH NO SIGNS OF RESPIRATORY DISTRESS, WITH EVEN NON-LABORED BREATHING, AND NO SOB NOTED AT THIS TIME. PATIENT IV ACCESS INTACT AND PATIENT INFUSING D5 1/2 NS AT 75ml/hr. PATIENT PRESENTS WITH NO SIGNS OF PAIN OR DISCOMFORT AT THIS TIME. SAFETY PRECAUTIONS IN PLACE WITH BED LOCKED, BED IN THE LOWEST POSITION, BILATERAL SIDE RAILS UP, BED ALARM ON, AND CALL LIGHT WITHIN EASY REACH. WILL CONTINUE TO MONITOR PATIENT.
[2020-03-16 07:52] LABS: BASOPHILS % (AUTO) 0.2 % (0.0-2.0); EOSINOPHILS % (AUTO) 0.6 % (0.0-6.0); HEMATOCRIT 44 % (39-51); HEMOGLOBIN 14.6 g/dL (13.5-17.5); LYMPHOCYTES # (AUTO) 2.1 /CMM (0.8-4.8); LYMPHOCYTES % (AUTO) 20.2 % (20.0-44.0); MEAN CORPUSCULAR HGB CONC 33 g/dl (31.0-36.0); MEAN CORPUSCULAR VOLUME 87 fL (80-96); MONOCYTES # (AUTO) 0.7 /CMM (0.1-1.30); MONOCYTES % (AUTO) 6.6 % (2.0-12.0); NEUTROPHILS # (AUTO) 7.6 /CMM (1.8-8.9); NEUTROPHILS % (AUTO) 72.4 % (43.0-81.0); PLATELET COUNT (AUTO) 230 /CMM (150-450); RED BLOOD CELL COUNT(AUTO) 5.04 MIL/uL (4.5-6.0); WHITE BLOOD COUNT (AUTO) 10.6 K/uL (4.3-11.0)
[2020-03-16 08:00] VITALS: BP 106/68
[2020-03-16 08:05] LABS: CALCIUM, SERUM 8.7 mg/dL (8.5-10.1); CREATININE 1.1 mg/dL (0.6-1.3); MAGNESIUM 2.1 mg/dL (1.8-2.4); PHOSPHORUS 3.6 mg/dL (2.5-4.9)
[2020-03-16 08:14] LABS: THYROID STIMULATING HORMONE 3.782 uIU/mL (0.358-3.74)
[2020-03-16 08:28] VITALS: BP 106/68
[2020-03-16 10:38] LABS: APPEARANCE,URINE CLEAR (CLEAR); BILIRUBIN,URINE NEGATIVE (NEGATIVE); BLOOD, URINE NEGATIVE Ery/uL (NEGATIVE); COLOR,URINE YELLOW (YELLOW); KETONES,URINE NEGATIVE (NEGATIVE); LEUKOCYTE ESTERASE ,URINE NEGATIVE (NEGATIVE); NITRITE, URINE NEGATIVE (NEGATIVE); PH,URINE 5.5 (5.0-8.0); PROTEIN,URINE NEGATIVE (NEGATIVE); UGLUCOSE NEGATIVE (NEGATIVE); UROBILINOGEN,URINE 0.2 EU/dL (0.2)
[2020-03-16 10:51] LABS: CREATININE, URINE 96.2 MG/DL (30.0-125.0); URINE TOTAL PROTEIN 12.9 mg/dL (0-11.9)
[2020-03-16 11:09] LABS: EOSINOPHIL,URINE None Seen
--- NOTE | 2020-03-16 12:30 | NUR ---
MS RN NOTES INFORMED DR. OLIVEROS PATIENT'S VTE SCORE OF 3, OBTAINED ORDER OF LOVENOX 40 mg SQ DAILY, WILL CARRY OUT ORDERS AND CONTINUE TO MONITOR PATIENT.
[2020-03-16] MEDS: ENOXAPARIN SODIUM 40 MG/0.4 ML DISP.SYRIN SQ SCH (12:40)
[2020-03-16 16:53] VITALS: BP 112/70
--- NOTE | 2020-03-16 18:40 | NUR ---
MS RN NOTES PATIENT IN BED AWAKE, ALERT AND ORIENTED X 4. ON ROOM AIR WITH NO SIGNS OF RESPIRATORY DISTRESS PRESENT, WITH EVEN NON-LABORED BREATHING AND NO SOB NOTED. SKIN KEPT CLEAN AND DRY, IV ACCESS INTACT AND PATENT, INFUSING IV FLUIDS D5 1/2 NS AT 75ml/hr. PATIENT PRESENTS WITH NO SIGNS OF PAIN OR DISCOMFORT AT THIS TIME. MET ALL OF PATIENT'S NEEDS. SAFETY PRECAUTIONS IN PLACE WITH BED LOCKED, BED IN THE LOWEST POSITION, BILATERAL SIDE RAILS UP, BED ALARM ON, AND CALL LIGHT WITHIN EASY REACH. WILL ENDORSE PLAN OF CARE TO UPCOMING NURSE.
--- NOTE | 2020-03-16 19:57 | NUR ---
RN OPENING NOTES PATIENT RECEIVED RESTING IN BED A/O X 4. STABLE ON RA WITH BREATHING EVEN AND UNLABORED, NO SOB NOTED. NO SIGNS OF ACUTE DISTRESS. NO COMPLAINTS OF PAIN OR DISCOMFORT AT THE MOMENT. IV LOCATED ON L FA # 18 RUNNING D5 1/2 NS @ 75 ML/HR. SAFETY PRECAUTIONS IN PLACE WITH BED IN LOWEST POSITION, CALL LIGHT WITHIN REACH, BREAKS ON, SIDE RAILS UP. WILL CONTINUE TO MONITOR THROUGHOUT THE NIGHT.
[2020-03-16 20:00] VITALS: BP 113/72
[2020-03-17] MEDS: VANCOMYCIN HCL 125 MG/2.5 ML ORAL.SUSP PO SCH ×5 (00:25→23:50)
[2020-03-17] MEDS: IV D5/0.45 NACL 1,000 ML IV PRN (00:29)
[2020-03-17] MEDS: METRONIDAZOLE 500MG/ NS 100ML 500 MG in PREMIX 1 EA IV SCH ×2 (04:26→12:35)
--- NOTE | 2020-03-17 06:41 | NUR ---
RN CLOSING NOTES PATIENT RESTING IN BED A/O X 4. STABLE ON RA WITH BREATHING EVEN AND UNLABORED, NO SOB NOTED. NO SIGNS OF ACUTE DISTRESS. NO COMPLAINTS OF PAIN OR DISCOMFORT AT THE MOMENT. IV LOCATED ON L FA # 18 RUNNING D5 1/2 NS @ 75 ML/HR. SAFETY PRECAUTIONS IN PLACE WITH BED IN LOWEST POSITION, CALL LIGHT WITHIN REACH, BREAKS ON, SIDE RAILS UP. ALL NEEDS ATTENDED TO. WILL ENDORSE TO ONCOMING SHIFT ABOUT LAINA.
[2020-03-17 06:58] LABS: BASOPHILS % (AUTO) 0.2 % (0.0-2.0); EOSINOPHILS % (AUTO) 0.5 % (0.0-6.0); HEMATOCRIT 43 % (39-51); HEMOGLOBIN 14.2 g/dL (13.5-17.5); LYMPHOCYTES # (AUTO) 1.6 /CMM (0.8-4.8); LYMPHOCYTES % (AUTO) 15.2 % (20.0-44.0); MEAN CORPUSCULAR HGB CONC 33 g/dl (31.0-36.0); MEAN CORPUSCULAR VOLUME 87 fL (80-96); MONOCYTES # (AUTO) 0.9 /CMM (0.1-1.30); MONOCYTES % (AUTO) 8.2 % (2.0-12.0); NEUTROPHILS # (AUTO) 7.9 /CMM (1.8-8.9); NEUTROPHILS % (AUTO) 75.9 % (43.0-81.0); PLATELET COUNT (AUTO) 210 /CMM (150-450); RED BLOOD CELL COUNT(AUTO) 4.92 MIL/uL (4.5-6.0); WHITE BLOOD COUNT (AUTO) 10.4 K/uL (4.3-11.0)
--- NOTE | 2020-03-17 07:56 | NUR ---
RN Opening note Received patient in bed AO x 4, able to responds all stimuli. Skin is warm to touch, keep clean/dry, intact IV site on left forearm 18G, running D5 1/2 NS at 75 ML. Respiratory even and unlabored on room air, no sob or distress observed. Keep bed locked with lowest position and elevated HOB for ensure airway. Call light within reach, will continue to monitor.
--- NOTE | 2020-03-17 07:58 | NUR ---
RN Opening note Received patient in bed AO x 2-3 forgetful, able to responds all stimuli. Skin is warm to touch, keep clean/dry, intact midline site on left upper arm, pt has wound vac for left LE. Respiratory even and unlabored on room air, no sob or distress observed. Keep bed locked with lowest position and elevated HOB for ensure airway. Call light within reach, will continue to monitor.
[2020-03-17 08:29] VITALS: BP 118/79
[2020-03-17 08:53] LABS: CALCIUM, SERUM 8.4 mg/dL (8.5-10.1); CREATININE 1.2 mg/dL (0.6-1.3); MAGNESIUM 1.9 mg/dL (1.8-2.4); POTASSIUM 3.9 mmol/L (3.5-5.1)
[2020-03-17] MEDS: ENOXAPARIN SODIUM 40 MG/0.4 ML DISP.SYRIN SQ SCH (08:55)
[2020-03-17 16:00] VITALS: BP 109/58
--- NOTE | 2020-03-17 18:35 | NUR ---
RN Closing note Patient in bed resting comfortably, remains AO x 4, skin is warm ot touch, keep clean/dry, intact IV site running D5NS at 75 ml/hr. Respiratory even and unlabored on room air, no sob or distress observed. Kept locked bed with lowest position for safety and elevated HOB for ensure airway. Call light within reach, will continue to monitor.
--- NOTE | 2020-03-17 19:15 | NUR ---
RN MS opening notes Received Pt from morning nurse. Pt is sitting in bed comfortably. Pt is alert and orientedX4. Pt speaks Tunisian/East Timorese and able to make needs known. Respiration is normal in room air. NO SOB. No S/S of distress noted. IV sites at LFA# 18 is infiltrated. Will inserted new IV sites soon. Safety precautions is maintained. Bed at low position, brakes locked, side railsupX2 and call light is within reach. Will continue to monitor.
--- NOTE | 2020-03-17 19:30 | NUR ---
RN medsurg notes Pt's IV sites at LFA# 18 is infiltrated. Inserted new IV sites R forearm# 22 with good blood returned. New sites is clean, intact and infusing well D51/2NS@ 75 ml/hr. Pt tolerated activity well. Will continue to monitor.
[2020-03-17 20:00] VITALS: BP 115/63
[2020-03-17] MEDS: METRONIDAZOLE 500 MG TABLET PO SCH (20:37)
--- NOTE | 2020-03-17 23:58 | NUR ---
RN MS notes Pt daughter called thru Pt's cellphone. Spoke with Pt's daughter Prema regarding meds flagyl and vancocin. Also informed Pt's is VS is stable and afebrile. Pt daughter appreciate the info. Will continue to monitor.
[2020-03-18] VITALS: BP 151/96
[2020-03-18] MEDS: IV D5/0.45 NACL 1,000 ML IV PRN (02:59)
[2020-03-18] MEDS: METRONIDAZOLE 500 MG TABLET PO SCH ×3 (04:14→20:17)
[2020-03-18] MEDS: VANCOMYCIN HCL 125 MG/2.5 ML ORAL.SUSP PO SCH ×4 (06:02→23:07)
--- NOTE | 2020-03-18 06:40 | NUR ---
RN MS closing notes Pt is resting in bed comfortably. Pt is alert and orientedX4. Pt speaks Citizen Of [place]/Dutch and able to make needs known. Respiration is normal in room air. NO SOB. No S/S of distress noted. VS is stable. Afebrile. Routine meds were given as ordered. IV sites at R forearm#22 is clean, intact and infusing well D5 1/2 NS @ 75 ml/hr. Kept Pt clean, dry and comfortable. All needs met and attended. Safety precautions is maintained. Bed at low position, brakes locked, side railsupX2, HOB elevated and call light is within reach. Will endorse to morning nurse for LAINA.
--- NOTE | 2020-03-18 07:38 | NUR ---
MS RN OPENING SHIFT NOTES RECEIVED PATIENT RESTING COMFORTABLY IN BED, A/O X4. PORTUGUESE/LAO SPEAKING. PT IS ABLE TO MAKE NEEDS KNOWN. PT ON RA, NO ACUTE RESPIRATORY DISTRESS NOTED, BREATHING EVEN UNLABORED BREATHS. NO SOB. PT AMBULATORY WITH ASSIST, BRP. IV TO RT FOREARM #22 G RUNNING D5 1/2 NS @75 ML/HR. SKIN INTACT. BED AT LOWEST POSITION LOCKED WITH SIDE RAILS UP X 2. AND CALL LIGHT WITH IN REACH. WILL CONTINUE TO MONITOR PT THROUGH OUT SHIFT.
[2020-03-18 08:00] VITALS: BP 109/78
[2020-03-18] MEDS: ENOXAPARIN SODIUM 40 MG/0.4 ML DISP.SYRIN SQ SCH (09:02)
[2020-03-18 16:00] VITALS: BP 136/64
--- NOTE | 2020-03-18 18:10 | NUR ---
MS RN CLOSING SHIFT NOTES PATIENT RESTING COMFORTABLY IN BED, A/O X4. AUSTRIAN/BRUNEIAN SPEAKING. VERY LIMITED ARMENIAN, INTERPRETATION BY AUSTRIAN SPEAKING RN. PT IS ABLE TO MAKE NEEDS KNOWN. PT ON RA, NO SOB NOTED, NO ACUTE RESPIRATORY DISTRESS NOTED, BREATHING EVEN AND UNLABORED. PT IS AMBULATORY WITH MINIMAL ASSIST, BRP, PT HAD 2 LOOSE STOOL THIS SHIFT.PENDING C-DIFF RESULTS. IV TO RT AC #22 G; RUNNING D5 1/2 NS @75 ML/HR. SKIN INTACT. BED AT LOWEST POSITION LOCKED WITH SIDE RAILS UP X 2. AND CALL LIGHT WITH IN REACH. WILL ENDORSE TO SHINGLE GRADER.
--- NOTE | 2020-03-18 19:30 | NUR ---
MS RN OPEING NOTE RECEIVED PATIENT IN BED. A/OX 3. VINCENTIAN SPEAKING, ABLE TO MAKE BASIC NEEDS KNOWN. TOLERATING ROOM AIR. RESPIRATIONS ARE EVEN AND UNLABORED.NO S/S SOB NOTED. NO C/O PAIN AT THIS TIME. IN NO APPARENT DISTRESS. IV ACCESS IN RIGHT FOREARM #22 RUNNING D5 1/2NS@75ML/HR. BED IS LOW AND LOCKED, HOB ELEVATED IN SEMI FOWLERS, SIDE RIALS UP X2. CALL LIGHT WITHIN REACH. WILL CONTINUE TO MONITOR.
[2020-03-18 20:00] VITALS: BP 106/65
--- NOTE | 2020-03-18 23:12 | NUR ---
MS RN NOTE PATIENT C/O STOMACH PAIN, BROUGHT TYLENOL 650MG FOR THE PAIN. PATIENT REFUSED LAST MINUTE, WILL RETURN TO [employer] CELL. WILL CONTINUE TO MONITOR.
[2020-03-19] MEDS: IV D5/0.45 NACL 1,000 ML IV PRN (02:13)
[2020-03-19] MEDS: METRONIDAZOLE 500 MG TABLET PO SCH ×2 (07:03→13:02)
[2020-03-19] MEDS: VANCOMYCIN HCL 125 MG/2.5 ML ORAL.SUSP PO SCH ×3 (07:03→18:18)
--- NOTE | 2020-03-19 07:46 | NUR ---
RN OPEN NOTES PATIENT IS A/O X 4 WITH NO SIGNS OF ACUTE DISTRESS IN ROOM AIR. NO SIGNS OF PAIN AT THIS MOMENT. IV R FA #22 G INTACT RUNNING D5 1/2 NS AT 75 ML/HR. SAFETY MEASURES ARE APPLIED, BED IS LOW AND LOCKED POSITION. SIDE RAILS UP X 2 FOR SAFETY. CALL LIGHT WITHIN REACH. WILL CONTINUE TO MONITOR.
--- NOTE | 2020-03-19 07:50 | NUR ---
MS RN CLOSING NOTE PATIENT RESTING IN BED. A/OX 3. REMAINS TOLERATING ROOM AIR. NO RESP DISTRESS. DID C/O STOMACH DISCOMFORT BUT DID NOT WANT ANYTHING. NO DISTRESS. IV ACCESS MAINTAINED IN RIGHT FOREARM #22 CURRENTLY PATENT AND SALINE LOCKED. BED REMAINS LOW AND LOCKED, HOB ELEVATED IN SEMI FOWLERS, SIDE RIALS UP X2. CALL LIGHT WITHIN REACH. WILL ENDORSE TO NEXT SHIFT.
[2020-03-19 08:00] VITALS: BP 110/69
--- NOTE | 2020-03-19 08:00 | NUR ---
KASI OPEN NOTES PATIENT IS A/O X 4 WITH NO SIGNS OF DISTRESS IN ROOM AIR. NO C/O PAIN AT THIS MOMENT. IV # R FA #22 G INTACT D5 1/2 RUNNING AT 75 ML/HR. SAFETY MEASURES ARE APPLIED BED IS LOCKED. SIDE RAILS UP X 2 FOR SAFETY, CALL LIGHT WITHIN REACH. WILL CONTINUE TO MONITOR.
[2020-03-19] MEDS: ENOXAPARIN SODIUM 40 MG/0.4 ML DISP.SYRIN SQ SCH (08:24)
--- NOTE | 2020-03-19 08:35 | NUR ---
RECEIVED REPORT FROM [facility] DEEPTI CARVALHO FOR C-DIFF. REPORTED TO DR. CAMACHO WAITING FOR NEW ORDERS.
--- NOTE | 2020-03-19 08:35 | NUR ---
CONTACT ISOLATION IS BEING FOLLOWED.
[2020-03-19 12:12] LABS: BASOPHILS % (AUTO) 0.3 % (0.0-2.0); EOSINOPHILS % (AUTO) 0.5 % (0.0-6.0); HEMATOCRIT 41 % (39-51); HEMOGLOBIN 13.7 g/dL (13.5-17.5); LYMPHOCYTES # (AUTO) 1.8 /CMM (0.8-4.8); LYMPHOCYTES % (AUTO) 28.9 % (20.0-44.0); MEAN CORPUSCULAR HGB CONC 33 g/dl (31.0-36.0); MEAN CORPUSCULAR VOLUME 87 fL (80-96); MONOCYTES # (AUTO) 0.6 /CMM (0.1-1.30); MONOCYTES % (AUTO) 9.7 % (2.0-12.0); NEUTROPHILS # (AUTO) 3.8 /CMM (1.8-8.9); NEUTROPHILS % (AUTO) 60.6 % (43.0-81.0); PLATELET COUNT (AUTO) 205 /CMM (150-450); RED BLOOD CELL COUNT(AUTO) 4.78 MIL/uL (4.5-6.0); WHITE BLOOD COUNT (AUTO) 6.3 K/uL (4.3-11.0)
[2020-03-19 12:29] LABS: ALBUMIN 2.9 g/dL (3.4-5.0); BILIRUBIN,TOTAL 0.5 mg/dL (0.2-1.0); CALCIUM, SERUM 8.3 mg/dL (8.5-10.1); MAGNESIUM 1.9 mg/dL (1.8-2.4); PHOSPHORUS 3.1 mg/dL (2.5-4.9); POTASSIUM 4.1 mmol/L (3.5-5.1)
[2020-03-19 16:00] VITALS: BP 103/65
[2020-03-19] MEDS ORDERED: VANC125C11 PO (16:33)
[2020-03-19] MEDS ORDERED: METR500T PO (16:33)
--- NOTE | 2020-03-19 19:36 | NUR ---
RN CLOSED NOTES PATIENT IS A/O X 4 WITH NO SIGNS OF DISTRESS IN ROOM AIR. NO C/O PAIN AT THIS MOMENT. IV R FA #22 G INTACT D5 1/2 RUNNING AT 75 ML/HR. DISCHARGE PAPERWORK COMPLETED AND SIGNED BY PATIENT, PATIENT VERBALIZED UNDERSTANDING. SKIN IS INTACT AND BELONGING LIST SIGNED AND COMPLETED. PATIENT KEPT CLEAN AND DRY. ALL NEEDS, CARE, TREATMENT AND MEDICATIONS ADMINISTERED ANTICIPATED PER ORDER. SAFETY MEASURES ARE APPLIED, BED IS LOW AND LOCKED POSITION. SIDE RAILS UP X 2 FOR SAFETY. CALL LIGHT WITHIN REACH. WILL ENDORSE TO THE NEXT INVENTORY CONTROL CLERK
--- NOTE | 2020-03-19 19:50 | NUR ---
MS RN NOTES DISCHARGED PATIENT ON A STABLE CONDITION, REMAINED ALERT AND ORIENTED X 3 WITH NO DISTRESS OBSERVED. IV LINE AND ID BAND REMOVED. BELONGINGS AND DISCHARGE PACKET GIVEN TO PATIENT. WHEELED OUT ON THE LOBBY AND PICKED-UP BY DAUGHTER ON A PRIVATE CAR.
== END 2020-03-19 19:50 | disposition home or self-care (01) | DRG 248 ==
LOC: ER 16:20 → MED 21:03
PROVIDERS: ADMIT Student in an Organized Health Care Education/Training Program; ATTEND Internal Medicine
DX: A04.71 Enterocolitis due to Clostridium difficile, recurrent (principal); N40.0 Benign prostatic hyperplasia without lower urinary tract symptoms; N17.0 Acute kidney failure with tubular necrosis; Z68.1 Body mass index [BMI] 19.9 or less, adult; R94.6 Abnormal results of thyroid function studies; Z86.19 Personal history of other infectious and parasitic diseases; E44.0 Moderate protein-calorie malnutrition
CPT/HCPCS: 36415; 74018; 80048-TC; 80053-TC; 80061-TC; 80076-TC; 81000-TC; 82570-TC; 83690-TC; 83735-TC; 84100-TC; 84155-TC; 84300-TC; 84443-TC; 85025-TC; 87081-TC; A4216; C9803; G0378; J1650; J3490; J7030

== ENCOUNTER 2021-12-03 19:37 | Inpatient (IN) | payer MEDICAID, OTHER ==
[~2021-12-03] VITALS: Ht 172.7 cm; Wt 51.3 kg
[~2021-12-03 19:37] MED LIST: METR500T PO; VANC125C11 PO
--- NOTE | 2021-12-03 20:07 | NUR ---
ROBERTH FROM HOME C/O GENERALIZED WEAKNESS. PT TESTED COVID POSITIVE LAST WEEK. PT AWAKE AND ALERT X4 DENIES ANY SOB SATTING 100% RA. PT CHANGED INTO A GOWN AND PLACED ON MONITOR AND PULSE OX AND V/S WNL.
[2021-12-03] MEDS ORDERED: IV NS 0.9% 1,000 ML IV ONE (20:30)
[2021-12-03 21:14] LABS: BASOPHILS % (AUTO) 0.2 % (0.0-2.0); EOSINOPHILS % (AUTO) 0.4 % (0.0-6.0); HEMATOCRIT 43 % (39-51); HEMOGLOBIN 14.2 g/dL (13.5-17.5); LYMPHOCYTES # (AUTO) 1.2 K/uL (0.8-4.8); LYMPHOCYTES % (AUTO) 18.3 % (20.0-44.0); MEAN CORPUSCULAR HGB CONC 33 g/dl (31.0-36.0); MEAN CORPUSCULAR VOLUME 86 fL (80-96); MONOCYTES # (AUTO) 0.8 K/uL (0.1-1.30); MONOCYTES % (AUTO) 11.4 % (2.0-12.0); NEUTROPHILS # (AUTO) 4.7 K/uL (1.8-8.9); NEUTROPHILS % (AUTO) 69.7 % (43.0-81.0); PLATELET COUNT (AUTO) 290 K/uL (150-450); RED BLOOD CELL COUNT(AUTO) 4.94 MIL/uL (4.5-6.0); WHITE BLOOD COUNT (AUTO) 6.7 K/uL (4.3-11.0)
[2021-12-03 21:21] LABS: ALANINE AMINOTRANSFERASE 24 U/L (12-78); ALBUMIN 3.2 g/dL (3.4-5.0); ALKALINE PHOSPHATASE 76 U/L (46-116); ASPARTATE AMINOTRANSFERASE 36 U/L (15-37); BILIRUBIN,DIRECT 0.2 mg/dL (0.0-0.2); BILIRUBIN,TOTAL 0.5 mg/dL (0.2-1.0); CALCIUM, SERUM 8.9 mg/dL (8.5-10.1); CARBON DIOXIDE 32 mmol/L (21-32); CHLORIDE 102 mmol/L (98-107); GLUCOSE 96 mg/dL (74-106); POTASSIUM 3.8 mmol/L (3.5-5.1); SODIUM SERUM 141 mmol/L (136-145); TOTAL PROTEIN, SERUM 7.6 g/dL (6.4-8.2); UREA NITROGEN, BLOOD 18 mg/dL (7-18)
--- NOTE | 2021-12-03 21:49 | NUR ---
COVID POSITIVE. ISOLATION PRECAUTIONS IN PLACE MD AWARE.
--- NOTE | 2021-12-03 22:26 | NUR ---
ROOM 107
--- NOTE | 2021-12-03 22:58 | NUR ---
REPORT GIVEN TO DOMINGUEZ
--- NOTE | 2021-12-03 23:09 | NUR ---
PT TRANSPORTED TO ROOM 107 VIA [facility] IN STABLE CONDITION
[2021-12-03 23:45] VITALS: BP 144/90
--- NOTE | 2021-12-03 23:45 | NUR ---
RN ADMITTING NOTE RECEIVED PATIENT FROM ER VIA GURNEY ACCOMPANIED BY 1 ER STAFF, AMBULATED TO BED WITH 2 PERSON ASSIST. PT IS AO X 3-4, KOREAN SPEAKING, UNDERSTANDS LUX[place]BOURGISH, IN NO SIGN OF ACUTE DISTRESS, RESPIRATIONS EVEN AND UNLABORED, SATURATION AT 97% ON ROOM AIR. COMPREHENSIVE PHYSICAL ASSESSMENT AND PATIENT CARE DONE. NO SKIN ISSUES NOTED. NOTED IV LINE AT LFA 20G, PATENT AND FLUSHING WELL, NO S/S OF INFECTION OR INFILTRATION NOTED. SAFETY MEASURES AND ISOLATION PRECAUTION IN PLACE, CALL LIGHT WITHIN REACH OF PATIENT, BED ON LOWEST POSITION, SIDE RAILS UP X 2. WILL CONTINUE MONITOR AND ASSESS THROUGHOUT THE SHIFT. WILL CARRY OUT MD ORDERS ACCORDINGLY. CIS COORDINATOR MADE AWARE.
[2021-12-04] VITALS: BP 120/62
[2021-12-04] MEDS ORDERED: ACETAMINOPHEN 325 MG TABLET PO PRN
[2021-12-04] MEDS ORDERED: Z GUARD REMEDY 4 OZ OINT TP PRN
[2021-12-04] MEDS ORDERED: ONDANSETRON HCL/PF 4 MG/2 ML VIAL IVP PRN
[2021-12-04] MEDS ORDERED: AZITHROMYCIN 500 MG VIAL ONE (00:59)
[2021-12-04] MEDS: AZITHROMYCIN 500 MG in IV D5W 250 ML IV SCH ×2 (01:01→21:27)
[2021-12-04] MEDS: ENOXAPARIN SODIUM 40 MG/0.4 ML DISP.SYRIN SQ SCH ×2 (01:01→21:26)
[2021-12-04] MEDS: IV LR 1000 ML 1,000 ML IV PRN ×2 (01:01→15:07)
[2021-12-04 04:00] VITALS: BP 131/83
[2021-12-04 07:03] LABS: BASOPHILS % (AUTO) 0.2 % (0.0-2.0); EOSINOPHILS % (AUTO) 0.3 % (0.0-6.0); HEMATOCRIT 41 % (39-51); HEMOGLOBIN 13.8 g/dL (13.5-17.5); LYMPHOCYTES # (AUTO) 1.2 K/uL (0.8-4.8); LYMPHOCYTES % (AUTO) 19.6 % (20.0-44.0); MEAN CORPUSCULAR HGB CONC 34 g/dl (31.0-36.0); MEAN CORPUSCULAR VOLUME 85 fL (80-96); MONOCYTES # (AUTO) 0.7 K/uL (0.1-1.30); MONOCYTES % (AUTO) 11.3 % (2.0-12.0); NEUTROPHILS # (AUTO) 4.3 K/uL (1.8-8.9); NEUTROPHILS % (AUTO) 68.6 % (43.0-81.0); PLATELET COUNT (AUTO) 268 K/uL (150-450); RED BLOOD CELL COUNT(AUTO) 4.76 MIL/uL (4.5-6.0); WHITE BLOOD COUNT (AUTO) 6.2 K/uL (4.3-11.0)
--- NOTE | 2021-12-04 07:30 | NUR ---
RN NOTE RECEIVED PATIENT IN BED RESTING ALERT ORIENTED X4 VERBALLY RESPONSIVE HONDURAN,SPEAKING,ON ROOM AIR O2:96% IV SITE IS ON LEFT FOREARM,INTACT PATENT ON LR 80CC/HR IV HYDRATION,CONTIENT BOWEL/BLADDER LEFT SIDE WEAKNESS,SAFETY MEASURE IMPLEMENT BED IN LOW POSITION AND LOCKED,CALL LIGHT WITHIN REACH CONTINUE TO MONITOR.
[2021-12-04 07:32] LABS: THYROID STIMULATING HORMONE 1.778 uIU/mL (0.358-3.74)
[2021-12-04] MEDS: PANTOPRAZOLE 40 MG TABLET.DR PO SCH (07:54)
[2021-12-04 08:00] VITALS: BP 129/71
[2021-12-04 08:13] LABS: ALBUMIN 2.9 g/dL (3.4-5.0); BILIRUBIN,TOTAL 0.6 mg/dL (0.2-1.0); CALCIUM, SERUM 8.7 mg/dL (8.5-10.1); CREATININE 0.9 mg/dL (0.6-1.3); PHOSPHORUS 3.1 mg/dL (2.5-4.9); POTASSIUM 3.7 mmol/L (3.5-5.1); TOTAL PROTEIN, SERUM 6.9 g/dL (6.4-8.2)
[2021-12-04] MEDS: DEXAMETHASONE SOD PHOSPHATE 10 MG/ML VIAL IV SCH (08:39)
[2021-12-04 12:00] VITALS: BP 131/74
[2021-12-04] MEDS: CARBIDOPA/LEVODOPA 25/250 MG 1 UDTAB PO SCH ×2 (12:32→17:16)
[2021-12-04 16:00] VITALS: BP 126/73
--- NOTE | 2021-12-04 18:39 | NUR ---
RN NOTE PATIENT REMAINS ON ALERT ORIENTED X4 TRINIDADIAN SPEAKING ON ROOM AIR O2:95%,NO SOB NOT ACUTE DISTRESS NOTED, IV SITE IS ON LEFT FOREARM INTACT PATENT ON IV HYDRATION LR 80CC/HR,ALL DUE MEDS GIVEN MD ORDERED KEPT CLEAN AND DRY ALL THE TIME,ALL NEEDS MET.KEPT CALL LIGHT WITHIN REACH,WILL ENDORSE NEXT COMING SHIFT FOR CONTINUATION OF CARE.
--- NOTE | 2021-12-04 19:25 | NUR ---
RN NOTE RECEIVED PATIENT IN BED, AO X 3-4, PUERTO RICAN SPEAKING, UNDERSTANDS SIMPLE CZECH, IN NO SIGN OF ACUTE DISTRESS, RESPIRATIONS EVEN AND UNLABORED, SATURATION AT 95% ON ROOM AIR. SR ON THE MONITOR, HR IS 88. IV LINE AT LFA 20G, PATENT AND FLUSHING WELL, NO S/S OF INFECTION OR INFILTRATION WITH LR INFUSING AT 80 ML/HR. SAFETY MEASURES IMPLEMENTED. PATIENT BED ALARM IS ON. HEAD OF BED ELEVATED. BED IS LOCKED, IN LOWEST POSITION AND SIDE RAILS UP. CALL LIGHT WITHIN REACH OF THE PATIENT. WILL CONTINUE TO MONITOR AND REASSESS FOR ANY CHANGES.
[2021-12-04 20:00] VITALS: BP 113/64
[2021-12-05] VITALS: BP 107/68
[2021-12-05 04:00] VITALS: BP 112/72
[2021-12-05] MEDS: IV LR 1000 ML 1,000 ML IV PRN (05:45)
[2021-12-05 06:33] LABS: BASOPHILS % (AUTO) 0.3 % (0.0-2.0); EOSINOPHILS % (AUTO) 0.1 % (0.0-6.0); HEMATOCRIT 40 % (39-51); HEMOGLOBIN 13.5 g/dL (13.5-17.5); LYMPHOCYTES # (AUTO) 1.4 K/uL (0.8-4.8); LYMPHOCYTES % (AUTO) 19.2 % (20.0-44.0); MEAN CORPUSCULAR HGB CONC 33 g/dl (31.0-36.0); MEAN CORPUSCULAR VOLUME 85 fL (80-96); MONOCYTES # (AUTO) 0.7 K/uL (0.1-1.30); MONOCYTES % (AUTO) 10.6 % (2.0-12.0); NEUTROPHILS # (AUTO) 4.9 K/uL (1.8-8.9); NEUTROPHILS % (AUTO) 69.8 % (43.0-81.0); PLATELET COUNT (AUTO) 341 K/uL (150-450); RED BLOOD CELL COUNT(AUTO) 4.73 MIL/uL (4.5-6.0); WHITE BLOOD COUNT (AUTO) 7.1 K/uL (4.3-11.0)
[2021-12-05 06:39] LABS: CALCIUM, SERUM 8.9 mg/dL (8.5-10.1); CREATININE 0.9 mg/dL (0.6-1.3); POTASSIUM 4.4 mmol/L (3.5-5.1)
--- NOTE | 2021-12-05 07:00 | NUR ---
RN NOTES RECEIVED PT ON BED, A/Ox4, ON RA, O2 SAT WNL, NO DISTRESS NOTED, ON TELE SR HR IN 60'S , IV SITES CLEAN,DRY AND INTACT, SR UP X3, CALL LIGHT WITHIN EASY REACH, BED LOCKED AN IN LOWEST POSITION, CONTINUE TO MONITOR .
[2021-12-05 08:00] VITALS: BP 110/69
[2021-12-05] MEDS: DEXAMETHASONE SOD PHOSPHATE 10 MG/ML VIAL IV SCH (08:29)
[2021-12-05] MEDS: ACIDOPHILUS/BULGARICUS 1 EACH TAB.CHEW PO SCH ×3 (08:29→16:14)
[2021-12-05] MEDS: CARBIDOPA/LEVODOPA 25/250 MG 1 UDTAB PO SCH ×4 (08:30→16:13)
[2021-12-05] MEDS: PANTOPRAZOLE 40 MG TABLET.DR PO SCH (08:30)
[2021-12-05] MEDS ORDERED: ENSURE ENLIVE CHOC 237 ML CAN PO SCH (09:00)
[2021-12-05 16:00] VITALS: BP 110/68
[2021-12-05] MEDS ORDERED: AZIT250T13 PO (17:11)
[2021-12-05] MEDS ORDERED: DEXA6TAB6 PO (17:11)
--- NOTE | 2021-12-05 17:30 | NUR ---
RN NOTES DR MILES NOTIFED REGARDING CT CHEST RESULT. PT CAN GO HOME PER , DR CHAVEZ NOTIFED,
--- NOTE | 2021-12-05 18:04 | NUR ---
RN NOTES IV SITE D/ANALY, DISCHARGE INSTRUCTION GIVEN TO PT AND HIS DAUGHTER, VERBALIZED UNDERSTANDING, PT LEFT THE FLOOR TO MAIN ENTRANCE ACCOMPANIED BY FAMILY AND STAFF MEMBER, IN STABLE CONDITION .
== END 2021-12-05 18:08 | disposition home or self-care (01) | DRG 137 ==
LOC: ER 19:44 → TELE1 22:35 → MEDSG1 12-05 08:35
PROVIDERS: ADMIT Nurse Practitioner Acute Care; ATTEND Internal Medicine
DX: U07.1 COVID-19 (principal); J96.91 Respiratory failure, unspecified with hypoxia; J12.82 Pneumonia due to coronavirus disease 2019; R64 Cachexia; E44.0 Moderate protein-calorie malnutrition; M79.10 Myalgia, unspecified site; N40.0 Benign prostatic hyperplasia without lower urinary tract symptoms; Z68.1 Body mass index [BMI] 19.9 or less, adult; G20 Parkinson's disease; R62.7 Adult failure to thrive; Z86.19 Personal history of other infectious and parasitic diseases; R53.1 Weakness
CPT/HCPCS: 36415; 70450-TC; 71045-TC; 71250-TC; 80048-TC; 80053-TC; 80061-TC; 80076-TC; 83735-TC; 84100-TC; 84443-TC; 84484-TC; 85025-TC; 85378-TC; 86140-TC; 87081-TC; A4349; C9803; G0378; J0456; J1100; J1650; J7030; J7060; J7120

== ENCOUNTER 2022-07-05 18:18 | Inpatient (IN) | payer OTHER ==
[~2022-07-05] VITALS: Ht 170.2 cm; Wt 59.9 kg
[~2022-07-05 18:18] MED LIST changes: +AZIT250T13 PO; +DEXA6TAB6 PO; -METR500T PO; -VANC125C11 PO
--- NOTE | 2022-07-05 18:20 | NUR ---
BIB RA 39 FROM HOME C/O CHEST TIGHTNESS AND PALIPITATION, SOB, AND COUGH X1 DAY, 325 ASA GIVEN BY BERTHA.
--- NOTE | 2022-07-05 18:55 | NUR ---
DOPPLER U/S TECH AT BEDSIDE
[2022-07-05] MEDS ORDERED: IV NS 0.9% 1,000 ML BAG IV ONE ×2 (19:00→19:30)
[2022-07-05 19:27] LABS: CALCIUM, SERUM 8.8 mg/dL (8.5-10.1); CARBON DIOXIDE 24 mmol/L (21-32); CHLORIDE 99 mmol/L (98-107); CREATININE 1.4 mg/dL (0.6-1.3); GLUCOSE 119 mg/dL (74-106); POTASSIUM 3.8 mmol/L (3.5-5.1); SODIUM SERUM 132 mmol/L (136-145); UREA NITROGEN, BLOOD 20 mg/dL (7-18)
[2022-07-05] MEDS ORDERED: HEPARIN SODIUM, PORCINE 5000 UNITS/1 ML VIAL IV ONE (19:30)
[2022-07-05] MEDS ORDERED: HEPARIN INFUSION/D5W 500 ML IV ONE (19:30)
[2022-07-05 19:32] LABS: ALANINE AMINOTRANSFERASE < 6 U/L (12-78); ALBUMIN 3.1 g/dL (3.4-5.0); ALKALINE PHOSPHATASE 63 U/L (46-116); ASPARTATE AMINOTRANSFERASE 12 U/L (15-37); BILIRUBIN,DIRECT 0.3 mg/dL (0.0-0.2); BILIRUBIN,TOTAL 0.9 mg/dL (0.2-1.0)
[2022-07-05 19:59] LABS: BASOPHILS % (AUTO) 0.2 % (0.0-2.0); EOSINOPHILS % (AUTO) 0.1 % (0.0-6.0); HEMATOCRIT 40 % (39-51); HEMOGLOBIN 12.8 g/dL (13.5-17.5); LYMPHOCYTES % (AUTO) 15.1 % (20.0-44.0); MEAN CORPUSCULAR HGB CONC 32 g/dl (31.0-36.0); MEAN CORPUSCULAR VOLUME 82 fL (80-96); MONOCYTES # (AUTO) 1.6 K/uL (0.1-1.30); MONOCYTES % (AUTO) 11.4 % (2.0-12.0); NEUTROPHILS # (AUTO) 9.9 K/uL (1.8-8.9); NEUTROPHILS % (AUTO) 73.2 % (43.0-81.0); PLATELET COUNT (AUTO) 283 K/uL (150-450); RED BLOOD CELL COUNT(AUTO) 4.82 MIL/uL (4.5-6.0); WHITE BLOOD COUNT (AUTO) 13.6 K/uL (4.3-11.0)
[2022-07-05] MEDS ORDERED: CT SWABBABLE VALVE TRANS SET 1 EA INFUS.SET MC ONE (20:13)
[2022-07-05] MEDS ORDERED: IV NS 0.9% 250 ML IV ONE (20:13)
[2022-07-05] MEDS ORDERED: IOHEXOL-350 100 ML VIAL IV ONE (20:13)
--- NOTE | 2022-07-05 20:24 | NUR ---
PATIENT TAKEN TO CT VIA LIZ
[2022-07-05] MEDS ORDERED: HEPARIN INFUSION/D5W 500 ML IV PRN (21:00)
--- NOTE | 2022-07-05 21:20 | NUR ---
COMMENCED ON HEPARIN INF. AT 1100U/HR FOR REPEAT PTT AT 0320 07/06/22
--- NOTE | 2022-07-05 22:18 | NUR ---
REPORT GIVEN TO ADRYAN RN ROOM 115-1 FOR LAINA
[2022-07-05] MEDS ORDERED: ACETAMINOPHEN 325 MG TABLET PO PRN (22:30)
[2022-07-05] MEDS ORDERED: Z GUARD REMEDY 4 OZ OINT TP PRN (22:30)
[2022-07-05] MEDS ORDERED: ONDANSETRON HCL/PF 4 MG/2 ML VIAL IVP PRN (22:30)
[2022-07-05] MEDS ORDERED: MAG HYDROX/AL HYDROX/SIMETH 30 ML UDC PO PRN (22:30)
[2022-07-05] MEDS ORDERED: ZOLPIDEM TARTRATE 5 MG TABLET PO PRN (22:30)
[2022-07-05] MEDS: HEPARIN INFUSION/D5W 500 ML IV PRN (22:35)
--- NOTE | 2022-07-05 23:00 | NUR ---
FISHING LINE WINDING MACHINE OPERATOR NOTE RECEIVED PT VIA [facility]Z FROM ER WITH THE DX OF AFIB WITH RVR SECONDARY TO DVT. PT WAS AWAKE, A/O X 4, ABLE TO VERBALIZE NEEDS. PT IS MAURITANIAN SPEAKING BUT CAN SPEAK AND UNDERSTAND SURINAMESE A BIT. DAUGHTER WAS ON THE BED SIDE. CURRENTLY ON RA TOLERATING WELL, SATING @ 98%. TELE MONITOR READS AFIB WITH HR IN THE 120s. NO S/SX OF ACUTE RESPI DISTRESS NOTED AT THIS TIME. NO SOB. NO PAIN. IV ACCESS NOTED ON RAC #18g RUNNING HEPARIN DRIP @ 1100 UNITS/HR. LAC #20g RUNNING NS @ 75 CC/HR. BOTH PATENT, INTACT AND FLUSHES WELL. SKIN IS INTACT. DVT NOTED ON LEFT LOWER EXTREMITY WITH MINIMAL SWELLING. ALL SAFETY PRECAUTIONS IN PLACE: BED LOCKED IN LOW POSITION. BED ALARM ON. SR UP X 2. CALL LIGHT WITHIN REACH. WILL CONTINUE TO MONITOR PT.
[2022-07-05] MEDS: IV NS 0.9% 1,000 ML IV PRN (23:06)
[2022-07-05] MEDS ORDERED: CEFTRIAXONE 1 G VIAL ONE (23:07)
[2022-07-05] MEDS: CEFTRIAXONE 1 G in IV D5W 50 ML IV SCH (23:10)
[2022-07-05] MEDS ORDERED: CARBIDOPA/LEVODOPA 25/100 MG 1 UDTAB PO SCH (23:30)
[2022-07-05] MEDS: CARBIDOPA/LEVODOPA 25/100 MG 1 UDTAB PO SCH (23:48)
[2022-07-06] VITALS: BP 94/61
[2022-07-06 04:00] VITALS: BP 92/55
--- NOTE | 2022-07-06 05:31 | NUR ---
RN NOTE NEW APTT RESULT OF 329 IS 57.5, PER DOSING ORDER NO CHANGE IN DOSE WILL BE MADE.
--- NOTE | 2022-07-06 06:25 | NUR ---
RN NOTE NO SIGNIFICANT CHANGE T/O THE NIGHT. VSS. BP STILL ON THE LOW SIDE : SBP = 90s. TELE MONITOR READS SR WITH ST ELEVATION, HR IN THE 80s. ALL DUE MEDS GIVEN. HEPARIN DRIP ON GOING, RUNNING @ 1100 UNITS/HR. NEEDS MET. TURNED AND REPOSITIONED. WILL ENDORSE TO AM SHIFT NURSE FOR LAINA.
[2022-07-06 07:27] LABS: BASOPHILS % (AUTO) 0.3 % (0.0-2.0); EOSINOPHILS % (AUTO) 1.9 % (0.0-6.0); HEMATOCRIT 38 % (39-51); LYMPHOCYTES # (AUTO) 1.7 K/uL (0.8-4.8); LYMPHOCYTES % (AUTO) 20.4 % (20.0-44.0); MEAN CORPUSCULAR HGB CONC 32 g/dl (31.0-36.0); MEAN CORPUSCULAR VOLUME 84 fL (80-96); MONOCYTES # (AUTO) 1.1 K/uL (0.1-1.30); MONOCYTES % (AUTO) 13.3 % (2.0-12.0); NEUTROPHILS # (AUTO) 5.4 K/uL (1.8-8.9); NEUTROPHILS % (AUTO) 64.1 % (43.0-81.0); PLATELET COUNT (AUTO) 220 K/uL (150-450); RED BLOOD CELL COUNT(AUTO) 4.49 MIL/uL (4.5-6.0); WHITE BLOOD COUNT (AUTO) 8.4 K/uL (4.3-11.0)
--- NOTE | 2022-07-06 07:46 | NUR ---
telemetry monitor n note patient in bed, alert oriented , on tele monitor sr hr 91 , on ra ,no sob noted at this time, rt ac and lt ac hl intact and flushed well , on heparin drip as ordered, bed in lowest and locked position , call light within reach , safety measure implemented, will cont to monitor closely
[2022-07-06 08:00] VITALS: BP 91/59
[2022-07-06 08:08] LABS: ALANINE AMINOTRANSFERASE < 6 U/L (12-78); ALBUMIN 2.5 g/dL (3.4-5.0); ALKALINE PHOSPHATASE 49 U/L (46-116); ASPARTATE AMINOTRANSFERASE 20 U/L (15-37); BILIRUBIN,TOTAL 0.8 mg/dL (0.2-1.0); CALCIUM, SERUM 8.2 mg/dL (8.5-10.1); CARBON DIOXIDE 23 mmol/L (21-32); CHLORIDE 103 mmol/L (98-107); CREATININE 1.1 mg/dL (0.6-1.3); GLUCOSE 96 mg/dL (74-106); MAGNESIUM 2.1 mg/dL (1.8-2.4); POTASSIUM 3.7 mmol/L (3.5-5.1); SODIUM SERUM 133 mmol/L (136-145); UREA NITROGEN, BLOOD 14 mg/dL (7-18)
[2022-07-06 08:49] LABS: CHOLESTEROL 185 mg/dL (<200); HDL CHOLESTEROL 50 mg/dL (40-60); LDL 121 mg/dL (0-99); TRIGLYCERIDES 52 mg/dL (30-150)
[2022-07-06] MEDS: PANTOPRAZOLE 40 MG VIAL IV SCH (09:00)
[2022-07-06] MEDS: CARBIDOPA/LEVODOPA 25/100 MG 1 UDTAB PO SCH ×3 (09:30→16:00)
[2022-07-06] MEDS: CEFTRIAXONE 1 G in IV D5W 50 ML IV SCH (10:05)
--- NOTE | 2022-07-06 10:52 | NUR ---
tyrone rn note ptt 62.6 per hospital protocol cont 1100 unit kg and ptt in am tomorrow
--- NOTE | 2022-07-06 10:56 | NUR ---
tyrone rn note ua collected as ordered
--- NOTE | 2022-07-06 11:17 | NUR ---
KASSIE RN NOTE PER DR CRISTI QUINTERO OK TO GIVE LR BOLUS 500 ML BP 89/51
[2022-07-06] MEDS ORDERED: IV LR 1000 ML 500 ML IV ONE (11:30)
[2022-07-06] MEDS ORDERED: IV LR 500 ML IV ONE (11:30)
[2022-07-06] MEDS ORDERED: BENZ1TAB7 PO (11:54)
[2022-07-06] MEDS ORDERED: CARB1TAB21 PO (11:54)
[2022-07-06] MEDS: BENZTROPINE MESYLATE (1 MG) 1 MG TABLET PO SCH (11:59)
[2022-07-06 12:00] VITALS: BP 89/51
[2022-07-06] MEDS: MAGNESIUM HYDROXIDE 30 ML UDC PO PRN (12:03)
--- NOTE | 2022-07-06 12:55 | NUR ---
telegraph printer mechanic note lr done bp 98/67, 2decho doing now
--- NOTE | 2022-07-06 13:00 | NUR ---
KASSIE RN NOTE PER PATIENT AND FAMILY HE IS TAKING CONGETIN 1 MG, CALLED TO DR CRISTI DUBOSE TO START , ORDER CARRIED OUT
[2022-07-06] MEDS: IV NS 0.9% 1,000 ML IV PRN (14:22)
[2022-07-06] MEDS: HEPARIN INFUSION/D5W 500 ML IV PRN (15:36)
[2022-07-06 15:41] LABS: BILIRUBIN,URINE NEGATIVE (NEGATIVE); COLOR,URINE YELLOW (YELLOW); LEUKOCYTE ESTERASE ,URINE NEGATIVE (NEGATIVE); NITRITE, URINE NEGATIVE (NEGATIVE); PROTEIN,URINE NEGATIVE (NEGATIVE); UGLUCOSE NEGATIVE (NEGATIVE); UROBILINOGEN,URINE 0.2 EU/dL (0.2)
[2022-07-06 15:48] LABS: RBC,URINE NONE SEEN /HPF (0-2)
[2022-07-06 15:49] LABS: BACTERIA,URINE Rare /HPF (None Seen); SQUAMOUS EPITHELIAL CELL,UR Rare /HPF (None Seen); WBC,URINE NONE SEEN /HPF (0-3)
--- NOTE | 2022-07-06 15:53 | NUR ---
tyrone scott note per dr shannon rollins to to cont heparin christopher Addendum: 07/06/22 at 1704 by YARELY LAMBERT RN CONT HEPARIN DRIP PER DR SHANNON QUINTERO
[2022-07-06 16:00] VITALS: BP 127/61
--- NOTE | 2022-07-06 18:24 | NUR ---
KASSIE RN NOTE PATIENT IN BED ,ALERT , ORIENTED ,ON RA ,NO SOB NOTED AT THIS TIME, ON TELE MONITOR SR HR 72 , ON IVF ORDERED AND ON HEPARIN DRIP ORDERED , BED IN LOWEST AND LOCKED POSITION , CALL , LIGHT WITHIN REACH WILL CONT TO MONITOR
--- NOTE | 2022-07-06 19:30 | NUR ---
RN OPENING NOTE RECEIVED PT IN BED, AWAKE, IN SITTING, UPRIGHT POSITION. A/O X 4, ABLE TO VERBALIZE NEEDS. NEW ZEALANDER SPEAKING. ON RA, TOLERATING WELL, SATING @ 96%. TELE MONITOR READS ST HR IN LOW 100s. NO S/SX OF ACUTE RESPI DISTRESS NOTED AT THIS TIME. NO SOB. BREATHING IS EVEN AND UNLABORED. IV ACCESS ON RAC RUNNING HEPARIN DRIP @ 1100 UNITS/HR; LAC RUNNING NS @ 75 CC/HR. BOTH PATENT, INTACT AND FLUSHES WELL. ALL SAFETY MEASURES IN PLACE: BED LOCKED IN LOW POSITION, BED ALARM ON. CALL LIGHT WITHIN REACH. WILL CONTINUE TO MONITOR PT.
[2022-07-06 20:00] VITALS: BP 107/70
[2022-07-07] VITALS: BP 115/72
[2022-07-07] MEDS: CARBIDOPA/LEVODOPA 25/100 MG 1 UDTAB PO SCH ×4 (00:18→23:54)
--- NOTE | 2022-07-07 00:30 | NUR ---
RN NOTE RECEIVED REPORT FROM LAB : TROPONIN - 80 PT SHOWS NO ACUTE RESPI DISTRESS, DENIES PAIN. NOTIFIED DIRECTOR ORANGE, FLACO PANG. NO NEW ORDERS GIVEN.
[2022-07-07 04:00] VITALS: BP 111/72
[2022-07-07] MEDS: IV NS 0.9% 1,000 ML IV PRN ×2 (05:08→23:45)
--- NOTE | 2022-07-07 07:25 | NUR ---
RN opening NOTE RECEIVED PT AWAKE, A/O X 4, ABLE TO VERBALIZE NEEDS. verbally responsive. PT IS TAMAZIGHT/hungarian SPEAKING BUT CAN SPEAK AND UNDERSTAND SCOTTISH A BIT.CURRENTLY ON RA TOLERATING WELL, SATING @ 98%. TELE MONITOR READS SR NO S/SX OF ACUTE RESPI DISTRESS NOTED AT THIS TIME. NO SOB. NO PAIN. IV ACCESS NOTED ON RAC #18g RUNNING HEPARIN DRIP @ 1100 UNITS/HR. Left forearm #20g RUNNING NS @ 75 CC/HR. BOTH PATENT, INTACT AND FLUSHES WELL.all safety measures in place. call light within reach. bed locked at lowest position. side rails up x2.
[2022-07-07 07:52] LABS: BASOPHILS % (AUTO) 0.4 % (0.0-2.0); EOSINOPHILS % (AUTO) 4.1 % (0.0-6.0); HEMATOCRIT 37 % (39-51); LYMPHOCYTES # (AUTO) 1.8 K/uL (0.8-4.8); LYMPHOCYTES % (AUTO) 23.8 % (20.0-44.0); MEAN CORPUSCULAR HGB CONC 32 g/dl (31.0-36.0); MEAN CORPUSCULAR VOLUME 82 fL (80-96); MONOCYTES # (AUTO) 0.8 K/uL (0.1-1.30); MONOCYTES % (AUTO) 10.8 % (2.0-12.0); NEUTROPHILS # (AUTO) 4.6 K/uL (1.8-8.9); NEUTROPHILS % (AUTO) 60.9 % (43.0-81.0); PLATELET COUNT (AUTO) 252 K/uL (150-450); RED BLOOD CELL COUNT(AUTO) 4.52 MIL/uL (4.5-6.0); WHITE BLOOD COUNT (AUTO) 7.6 K/uL (4.3-11.0)
[2022-07-07 08:00] VITALS: BP 117/82
[2022-07-07 08:03] LABS: CALCIUM, SERUM 8.4 mg/dL (8.5-10.1); MAGNESIUM 2.1 mg/dL (1.8-2.4); POTASSIUM 3.8 mmol/L (3.5-5.1)
[2022-07-07] MEDS: CEFTRIAXONE 1 G in IV D5W 50 ML IV SCH (08:11)
[2022-07-07] MEDS: PANTOPRAZOLE 40 MG VIAL IV SCH (08:19)
[2022-07-07] MEDS: BENZTROPINE MESYLATE (1 MG) 1 MG TABLET PO SCH (11:11)
[2022-07-07 12:00] VITALS: BP 110/72
[2022-07-07] MEDS: HEPARIN INFUSION/D5W 500 ML IV PRN (14:13)
--- NOTE | 2022-07-07 14:39 | NUR ---
tyrone rn note ptt 57.3 per hospital protocol cont 1100 unit new PTT tomorrow morning
[2022-07-07 16:00] VITALS: BP 108/67
[2022-07-07 20:00] VITALS: BP 105/69
--- NOTE | 2022-07-07 20:00 | NUR ---
TD RN opening NOTE RECEIVED PT AWAKE, A/O X 4, ABLE TO VERBALIZE NEEDS. FAMILY AT BEDSIDE UPDATED WITH PTS CONDITION. PT IS .CURRENTLY ON RA TOLERATING WELL, SATING @ 100%. TELE MONITOR READS SR NO S/SX OF ACUTE RESPI DISTRESS NOTED AT THIS TIME. NO SOB. NO PAIN. IV ACCESS NOTED ON RAC #18g RUNNING HEPARIN DRIP @ 1100 UNITS/HR. Left forearm #20g RUNNING NS @ 75 CC/HR. BOTH PATENT, INTACT AND FLUSHES WELL.all safety measures in place. call light within reach. bed locked at lowest position. side rails up x2. WILL CONTINUE TO MONITOR PTS.
--- NOTE | 2022-07-07 20:04 | NUR ---
RN CLOSING NOTE PT AWAKE, A/O X 4, ABLE TO VERBALIZE NEEDS. verbally responsive. PT IS DIVEHI/kuwaiti SPEAKING BUT CAN SPEAK AND UNDERSTAND ARABIC A BIT.CURRENTLY ON RA TOLERATING WELL, SATING @ 98%. TELE MONITOR READS SR NO S/SX OF ACUTE RESPI DISTRESS NOTED AT THIS TIME. NO SOB. NO PAIN. IV ACCESS NOTED ON RAC #18g RUNNING HEPARIN DRIP @ 1100 UNITS/HR. Left forearm #20g RUNNING NS @ 75 CC/HR. BOTH PATENT, INTACT AND FLUSHES WELL.all safety measures in place. call light within reach. bed locked at lowest position. side rails up x2.ENDORSED TO LAB COURIER RN FOR CONTUITY OF CARE
[2022-07-07] MEDS: MAGNESIUM HYDROXIDE 30 ML UDC PO PRN (20:43)
[2022-07-08 00:31] VITALS: BP 110/56
[2022-07-08 04:00] VITALS: BP 120/68
[2022-07-08 05:41] LABS: BASOPHILS % (AUTO) 0.2 % (0.0-2.0); EOSINOPHILS % (AUTO) 6.9 % (0.0-6.0); HEMATOCRIT 37 % (39-51); HEMOGLOBIN 11.8 g/dL (13.5-17.5); LYMPHOCYTES # (AUTO) 1.5 K/uL (0.8-4.8); LYMPHOCYTES % (AUTO) 23.4 % (20.0-44.0); MEAN CORPUSCULAR HGB CONC 32 g/dl (31.0-36.0); MEAN CORPUSCULAR VOLUME 82 fL (80-96); MONOCYTES # (AUTO) 0.6 K/uL (0.1-1.30); NEUTROPHILS # (AUTO) 3.9 K/uL (1.8-8.9); NEUTROPHILS % (AUTO) 60.5 % (43.0-81.0); PLATELET COUNT (AUTO) 292 K/uL (150-450); RED BLOOD CELL COUNT(AUTO) 4.45 MIL/uL (4.5-6.0); WHITE BLOOD COUNT (AUTO) 6.4 K/uL (4.3-11.0)
--- NOTE | 2022-07-08 05:51 | NUR ---
td rn notes Pts remains in Bed awake and responsive no sob no distress noted , pts remains on heparin gtt at 1100 units/22ml/hr well tolerated by pts , ptt at 5am draw awaiting for result , will endorse to rn day shift for continuity of care.
[2022-07-08 05:56] LABS: CALCIUM, SERUM 8.3 mg/dL (8.5-10.1); MAGNESIUM 2.1 mg/dL (1.8-2.4); PHOSPHORUS 3.3 mg/dL (2.5-4.9); POTASSIUM 3.5 mmol/L (3.5-5.1)
--- NOTE | 2022-07-08 06:48 | NUR ---
JAMAICA VILLASEÑOR NOTES APTT 53.32 NO CHANGE WILL DO APTT JUSTINE AT 5AM Addendum: 07/08/22 at 0655 by JULIAN LAZARO RN APTT 53.2 NOT 53.32
[2022-07-08] MEDS: PANTOPRAZOLE 40 MG TABLET.DR PO SCH (07:30)
--- NOTE | 2022-07-08 07:34 | NUR ---
RN OPENING NOTE PT AWAKE, A/O X 4, ABLE TO VERBALIZE NEEDS. verbally responsive. PT IS MOHAWK/st helenian SPEAKING BUT CAN SPEAK AND UNDERSTAND INDONESIAN A BIT.CURRENTLY ON RA TOLERATING WELL, SATING ABOVE 92%. TELE MONITOR READS SR NO S/SX OF ACUTE RESPI DISTRESS NOTED AT THIS TIME. NO SOB. NO PAIN. IV ACCESS NOTED ON RAC #18g RUNNING HEPARIN DRIP @ 1100 UNITS/HR. Left forearm #20g RUNNING NS @ 75 CC/HR. BOTH PATENT, INTACT AND FLUSHES WELL.all safety measures in place. call light within reach. bed locked at lowest position. side rails up x2
[2022-07-08 08:00] VITALS: BP 119/75
[2022-07-08] MEDS: CARBIDOPA/LEVODOPA 25/100 MG 1 UDTAB PO SCH ×3 (08:02→23:51)
[2022-07-08] MEDS: CEFTRIAXONE 1 G in IV D5W 50 ML IV SCH (09:10)
[2022-07-08] MEDS: BENZTROPINE MESYLATE (1 MG) 1 MG TABLET PO SCH (11:02)
--- NOTE | 2022-07-08 11:17 | NUR ---
rn note current aPTT 53.2 continue heparin drip per protocol at 1100 units/hr rate 22
[2022-07-08 12:00] VITALS: BP 105/69
[2022-07-08] MEDS: HEPARIN INFUSION/D5W 500 ML IV PRN (12:54)
[2022-07-08 16:00] VITALS: BP 111/67
[2022-07-08] MEDS: IV NS 0.9% 1,000 ML IV PRN (17:43)
--- NOTE | 2022-07-08 19:23 | NUR ---
RN CLOSING NOTE PT AWAKE, A/O X 4, ABLE TO VERBALIZE NEEDS. verbally responsive. PT IS KHMER/scottish SPEAKING BUT CAN SPEAK AND UNDERSTAND ITALIAN A BIT.CURRENTLY ON RA TOLERATING WELL, SATING AT 96%%. TELE MONITOR READS SR. NO S/SX OF ACUTE RESPI DISTRESS NOTED AT THIS TIME. IV ACCESS NOTED ON LEFT FOREARM #18g RUNNING HEPARIN DRIP @ 1100 UNITS/HR. RATE 22 CC. Left forearm #20g RUNNING NS @ 75 CC/HR. BOTH PATENT, INTACT AND FLUSHES WELL.all safety measures in place. call light within reach. bed locked at lowest position. side rails up x2.BED ALARM ON. ENDORSED TO SCAGLIOLA MECHANIC RN FOR CONTUITY OF CARE
[2022-07-08 20:00] VITALS: BP 129/69
--- NOTE | 2022-07-08 20:00 | NUR ---
business banking representative opening NOTE RECEIVED PT AWAKE, A/O X 4. PT IS .CURRENTLY ON RA TOLERATING WELL, SATING @ 100%. TELE MONITOR READS SR NO S/SX OF ACUTE RESPI DISTRESS NOTED AT THIS TIME. NO SOB. NO PAIN. v/s stable afebrile IV ACCESS NOTED ON RAC #18g RUNNING HEPARIN DRIP @ 1100 UNITS/HR. Left forearm #20g RUNNING NS @ 75 CC/HR. BOTH PATENT, INTACT AND FLUSHES WELL.all safety measures in place. call light within reach. bed locked at lowest position. side rails up,will continue to monitor pts.
[2022-07-09] VITALS: BP 121/76
[2022-07-09 04:00] VITALS: BP 109/73
--- NOTE | 2022-07-09 05:48 | NUR ---
Teoe rn closing notes Pts remains in Bed awake no sob no distress noted , pts remains on heparin gtt at 1100 units/22ml/hr well tolerated by pts , ptt at 5am draw awaiting for result , will endorse to rn day shift for continuity of care.
[2022-07-09 06:19] LABS: BASOPHILS % (AUTO) 0.2 % (0.0-2.0); EOSINOPHILS % (AUTO) 8.9 % (0.0-6.0); HEMATOCRIT 38 % (39-51); HEMOGLOBIN 12.5 g/dL (13.5-17.5); LYMPHOCYTES # (AUTO) 1.6 K/uL (0.8-4.8); LYMPHOCYTES % (AUTO) 25.6 % (20.0-44.0); MEAN CORPUSCULAR HGB CONC 33 g/dl (31.0-36.0); MEAN CORPUSCULAR VOLUME 82 fL (80-96); MONOCYTES # (AUTO) 0.6 K/uL (0.1-1.30); MONOCYTES % (AUTO) 9.1 % (2.0-12.0); NEUTROPHILS # (AUTO) 3.6 K/uL (1.8-8.9); NEUTROPHILS % (AUTO) 56.2 % (43.0-81.0); PLATELET COUNT (AUTO) 314 K/uL (150-450); RED BLOOD CELL COUNT(AUTO) 4.63 MIL/uL (4.5-6.0); WHITE BLOOD COUNT (AUTO) 6.4 K/uL (4.3-11.0)
[2022-07-09 06:44] LABS: CALCIUM, SERUM 8.6 mg/dL (8.5-10.1); CARBON DIOXIDE 26 mmol/L (21-32); CHLORIDE 107 mmol/L (98-107); CREATININE 1.1 mg/dL (0.6-1.3); GLUCOSE 88 mg/dL (74-106); MAGNESIUM 2.1 mg/dL (1.8-2.4); PHOSPHORUS 3.5 mg/dL (2.5-4.9); POTASSIUM 3.8 mmol/L (3.5-5.1); SODIUM SERUM 140 mmol/L (136-145); UREA NITROGEN, BLOOD 7 mg/dL (7-18)
[2022-07-09] MEDS: PANTOPRAZOLE 40 MG TABLET.DR PO SCH (07:30)
--- NOTE | 2022-07-09 07:33 | NUR ---
RN OPENING NOTE PT AWAKE, A/O X 4, ABLE TO VERBALIZE NEEDS. verbally responsive. PT IS FRENCH/slovak SPEAKING BUT CAN SPEAK AND UNDERSTAND GERMAN A BIT.CURRENTLY ON RA TOLERATING WELL, SATING ABOVE 93% TELE MONITOR READS SR. NO S/SX OF ACUTE RESPI DISTRESS NOTED AT THIS TIME. IV ACCESS NOTED ON LEFT FOREARM #18g RUNNING HEPARIN DRIP @ 1100 UNITS/HR. RATE 22 CC. Left forearm #20g RUNNING NS @ 75 CC/HR. BOTH PATENT, INTACT AND FLUSHES WELL.all safety measures in place. call light within reach. bed locked at lowest position. side rails up x2.BED ALARM ON.
[2022-07-09 08:00] VITALS: BP 116/71
[2022-07-09] MEDS: CARBIDOPA/LEVODOPA 25/100 MG 1 UDTAB PO SCH ×3 (08:02→23:02)
[2022-07-09] MEDS: CEFTRIAXONE 1 G in IV D5W 50 ML IV SCH (08:02)
[2022-07-09] MEDS: HEPARIN INFUSION/D5W 500 ML IV PRN (10:01)
[2022-07-09] MEDS: BENZTROPINE MESYLATE (1 MG) 1 MG TABLET PO SCH (11:10)
[2022-07-09 12:00] VITALS: BP 111/58
[2022-07-09] MEDS: IV NS 0.9% 1,000 ML IV PRN (12:32)
[2022-07-09 16:00] VITALS: BP 103/65
--- NOTE | 2022-07-09 17:21 | NUR ---
rn note heparin drip discontinued per md order. no signs of bleeding.
[2022-07-09] MEDS: APIXABAN 5 MG TABLET PO SCH (17:46)
--- NOTE | 2022-07-09 19:20 | NUR ---
RN NOTE RECEIVED PT FOR CONTINUITY OF CARE. PATIENT A/OX4; INDONESIAN SPEAKING, IN NO S/SX OF ACUTE DISTRESS AT THIS TIME; CURRENTLY ROOM AIR ; WITH 02 SAT 95% AT THIS TIME. FAMILY AT BEDSIDE/ WITH IV ACCESS R AC#22 AND L AC#20, BOTH INTACT AND FLUSHING WELL. WITH RUNNING IV FLUIDS ORDERED. WILL ENSURE SAFETY MEASURES WITHIN THE SHIFT. PATIENT BED ALARM IS ON. HEAD OF BED ELEVATED. BED IS LOCKED, IN LOWEST POSITION AND SIDE RAILS UP. CALL LIGHT WITHIN REACH OF THE PATIENT. WILL CONTINUE TO MONITOR AND REASSESS FOR ANY CHANGES AND WILL CARRY OUT ANY ONGOING AND ACTIVE MD ORDER.
--- NOTE | 2022-07-09 19:44 | NUR ---
RN OPENING NOTE PT AWAKE, A/O X 4, ABLE TO VERBALIZE NEEDS. verbally responsive. PT IS UKRAINIAN/jordanian SPEAKING BUT CAN SPEAK AND UNDERSTAND AZERI A BIT.CURRENTLY ON RA TOLERATING WELL, SATING ABOVE 93% TELE MONITOR READS SR. NO S/SX OF ACUTE RESPI DISTRESS NOTED AT THIS TIME. IV ACCESS NOTED ON LEFT FOREARM #18g right forearm #20g RUNNING NS @ 75 CC/HR. BOTH PATENT, INTACT AND FLUSHES WELL.all safety measures in place. call light within reach. bed locked at lowest position. side rails up x2.BED ALARM ON. endorsed to [facility] shift lead rn Addendum: 07/09/22 at 1945 by ORVILLE CARMICHAEL RN closing note
[2022-07-09 20:00] VITALS: BP 117/70
--- NOTE | 2022-07-09 21:00 | NUR ---
RN NOTE PT REQUESTED TO REMOVE IV ACCESS ON L AC, RN ACKNOWLEDGED AND REMOVED. NO SIGNS OF INFECTION AND BLEEDING.
[2022-07-10] VITALS: BP 110/69
[2022-07-10] MEDS: IV NS 0.9% 1,000 ML IV PRN (02:43)
[2022-07-10 04:00] VITALS: BP 108/63
--- NOTE | 2022-07-10 04:00 | NUR ---
RN NOTE PATIENT REMAINED TO BE IN NO SIGNS OF ACUTE RESPIRATORY DISTRESS ,SAFE ENVIRONMENT MAINTAINED FOR PT. WILL CONTINUE TO MONITOR AND REASSESS FOR ANY CHANGES THROUGHOUT THE SHIFT.
--- NOTE | 2022-07-10 06:44 | NUR ---
RN CLOSING NOTE PATIENT REMAINS IN ROOM IN NO SIGNS OF RESPIRATORY DISTRESS, PATIENT ROOM AIR; TOLERATING WELL SATURATING @ >95% SP02. SAFETY MEASURES IMPLEMENTED, BED IN LOWEST POSITION, LOCKED, SIDE RAILS UP, CALL LIGHT WITHIN REACH. ALL NEEDS AND ORDERS ADDRESSED DURING THE SHIFT. IV ACCESS MAINTAINED INTACT, SECURED AND FLUSHING WELL. ALL DUE MEDS GIVEN ORDERED & SCHEDULED ; PATIENT TOLERATED WELL. PATIENT KEPT CLEAN AND COMFORTABLE WITHIN THE SHIFT. PATIENT ENDORSED TO INCOMING SHIFT RN WITH STABLE VITAL SIGN AND FOR CONTINUITY OF CARE.
--- NOTE | 2022-07-10 07:30 | NUR ---
POKER PROP PLAYER AM NOTE PT AWAKE, A/O X 4, ABLE TO VERBALIZE NEEDS. ON ROOM AIR, O2 SAT 95%. RESPIRATION UNLABORED. SR HR 83 ON MONITOR. DENIES CHEST PAIN/DISCOMFORT AT THIS TIME. RIGHT AC WITH NS AT 75 ML/HR INFUSING WELL. SITE CLEAR. NO SKIN ISSUES. ON CARDIAC DIET. BED REST FOR NOW. POC DISCUSSED AND VERBALIZED UNDERSTANDING. BED LOW LOCKED, SAFETY MEASURES IN PLACE, SR UPX 2, BED ALARM ON. WILL CONT TO MONITOR. FOR POSSIBLE DC TODAY
[2022-07-10 07:32] LABS: BASOPHILS % (AUTO) 0.2 % (0.0-2.0); HEMATOCRIT 37 % (39-51); LYMPHOCYTES # (AUTO) 1.6 K/uL (0.8-4.8); LYMPHOCYTES % (AUTO) 23.2 % (20.0-44.0); MEAN CORPUSCULAR HGB CONC 33 g/dl (31.0-36.0); MEAN CORPUSCULAR VOLUME 82 fL (80-96); MONOCYTES # (AUTO) 0.6 K/uL (0.1-1.30); MONOCYTES % (AUTO) 8.7 % (2.0-12.0); NEUTROPHILS # (AUTO) 4.3 K/uL (1.8-8.9); NEUTROPHILS % (AUTO) 61.9 % (43.0-81.0); PLATELET COUNT (AUTO) 324 K/uL (150-450); RED BLOOD CELL COUNT(AUTO) 4.51 MIL/uL (4.5-6.0)
[2022-07-10] MEDS: PANTOPRAZOLE 40 MG TABLET.DR PO SCH (07:54)
[2022-07-10] MEDS: CARBIDOPA/LEVODOPA 25/100 MG 1 UDTAB PO SCH (07:54)
[2022-07-10 08:00] VITALS: BP 117/73
[2022-07-10 08:13] LABS: CALCIUM, SERUM 8.7 mg/dL (8.5-10.1); MAGNESIUM 2.2 mg/dL (1.8-2.4); PHOSPHORUS 3.3 mg/dL (2.5-4.9)
[2022-07-10] MEDS: BENZTROPINE MESYLATE (1 MG) 1 MG TABLET PO SCH (08:47)
[2022-07-10] MEDS: APIXABAN 5 MG TABLET PO SCH (08:47)
[2022-07-10] MEDS: CEFTRIAXONE 1 G in IV D5W 50 ML IV SCH (08:48)
--- NOTE | 2022-07-10 09:30 | NUR ---
RN NOTES DUE MEDS GIVEN
[2022-07-10 12:00] VITALS: BP 110/70
[2022-07-10] MEDS ORDERED: DOXY-326 PO (14:26)
[2022-07-10] MEDS ORDERED: APIX5TAB PO (14:26)
--- NOTE | 2022-07-10 15:04 | NUR ---
RN NOTES PATIENT DISCHARGED TO HOME TODAY PER MD IN STABLE CONDITION. PROVIDED DC INSTRUCTIONS, MED RECON LIST AND HEALTH TEACHINGS. IV ACCESS ON RIGHT AC REMOVED, CATH TIP COMPLETE, APPLIED PRESSURE AND DRESSING, NO BLEEDING. PATIENT TO FOLLOW UP WITH PCP IN 1-2 WEEKS AND WILL MAKE OWN APPOINTMENT. ALL BELONGINGS CHECKED AND RETURNED. ALL PAPER WORKS SIGNED. NEW PRESCRIBED MEDICATIONS CHECKED WITH [facility] AND WILL BE READY FOR PICK IN 1 HOUR. WHEELED TO LOBBY WITH DAUGTER AND . AND WILL GO HOME VIA PRIVATE CAR BY DAUGHTER.
== END 2022-07-10 15:14 | disposition home or self-care (01) | DRG 201 ==
LOC: ER 18:24 → ICU 21:10 → TELE-TD 21:23 → TELE1 07-08 16:01
PROVIDERS: ADMIT Nurse Practitioner Acute Care; ATTEND Nurse Practitioner Acute Care
DX: I48.91 Unspecified atrial fibrillation (principal); N17.0 Acute kidney failure with tubular necrosis; E44.1 Mild protein-calorie malnutrition; I82.402 Acute embolism and thrombosis of unspecified deep veins of left lower extremity; G90.8 Other disorders of autonomic nervous system; E88.09 Other disorders of plasma-protein metabolism, not elsewhere classified; D68.59 Other primary thrombophilia; E87.1 Hypo-osmolality and hyponatremia; I25.10 Atherosclerotic heart disease of native coronary artery without angina pectoris; J90 Pleural effusion, not elsewhere classified; Z20.822 Contact with and (suspected) exposure to COVID-19; Z98.890 Other specified postprocedural states; G20 Parkinson's disease; I10 Essential (primary) hypertension; K21.9 Gastro-esophageal reflux disease without esophagitis; N40.0 Benign prostatic hyperplasia without lower urinary tract symptoms; Z86.16 Personal history of COVID-19; D72.829 Elevated white blood cell count, unspecified; I82.412 Acute embolism and thrombosis of left femoral vein; I82.432 Acute embolism and thrombosis of left popliteal vein; J98.11 Atelectasis
CPT/HCPCS: 36415; 71045-TC; 80048-TC; 80053-TC; 80061-TC; 80076-TC; 81001; 83605-TC; 83735-TC; 84100-TC; 84484-TC; 85025-TC; 85378-TC; 85730-TC; 87040-TC; 87081-TC; 87086-TC; 93307-TC; 93970-TC; C9113; G0378; J0696; J1644; J7030; J7050; J7060; J7120; Q9967